=== PATIENT | male | born 1950 | race Caucasian/White ===

== ENCOUNTER → 2017-04-04 | Outpatient (CLI) | payer MEDICARE, BC ==
[2017-04-04 07:51] LABS: Blood Urea Nitrogen 21 mg/dL (9-20); Non-African American GFR(MDRD) >60 (>60 ml/min/1.73 sqM)
--- NOTE | 2017-04-04 08:51 | CT ---
EXAMINATION TYPE: CT abdomen wo/w con DATE OF EXAM: 04/04/2017 COMPARISON: NONE HISTORY: Hematuria CT DLP: 534.2 mGycm Automated exposure control for dose reduction was used. TECHNIQUE: Helical acquisition of images was performed from the lung bases through the top of iliac crest to include entire abdomen. CONTRAST: 100 cc Omnipaque 300 FINDINGS: LUNG BASES: No significant abnormality is appreciated. Mild cardiomegaly seen. LIVER/GB: No significant abnormality is appreciated. PANCREAS: No significant abnormality is seen. SPLEEN: No significant abnormality is seen. ADRENALS: No significant abnormality is seen. KIDNEYS: There is a single punctate calcification involving the lower pole left kidney measuring 2 mm. There are numerous hypodense lesions involving the kidneys bilaterally with the largest on the right measuring 5 cm with a Hounsfield unit measurement of 15 compatible with simple cyst. There is a tiny exophytic lesion extending off the upper pole the right kidney which is hyperdense on noncontrast. Measures only 6 mm. Too small to accurately characterize. May represent a small hemorr hagic cyst. Recommend short-term follow-up given the small size of the lesion. There are approximately 7 hypodense lesions on the right and 10-11 on the left. All sizable lesions m easured fluid attenuation with no significant enhancement. There are couple of additional lesions too small to characterize. BOWEL: Small hiatal hernia noted.. LYMPH NODES: No significant abnormality is seen. OSSEOUS STRUCTURES: Hypertrophic and degenerative change of the spine noted. Sternotomy wires noted. . FREE AIR: No free air is visualized. OTHER: Small diaphragmatic hernia noted on the left containing peritoneal fat. There is a 3.6 x 3.2 c m infrarenal abdominal aortic aneurysm extending to the aortic bifurcation ectasia or mild aneurysmal dilation of the left common iliac artery also noted. IMPRESSION: 1. Numerous bilateral simple appearing renal cysts. There are couple lesions which are too small to c haracterize including a 6 mm exophytic upper pole right renal lesion which is somewhat hyperdense on noncontrast imaging. Most likely related to a small hemorrhagic cyst. Other etiologies not entirely e xcluded and short-term follow-up is recommended to confirm stability. 2. Infrarenal abdominal aortic aneurysm measuring 3.6 x 3.2 cm. 3. Small diaphragmatic hernia on the left posteriorly containing peritoneal fat. #4 nonobstructing 2 mm lower pole left renal calcification.
== END ==
LOC: RADCTMAIN 07:22
PROVIDERS: ATTEND Urology
DX: N28.1 Cyst of kidney, acquired (principal); I71.4 Abdominal aortic aneurysm, without rupture; K44.9 Diaphragmatic hernia without obstruction or gangrene; N28.89 Other specified disorders of kidney and ureter
CPT/HCPCS: 82565; 84520; 74170; 36415; Q9967

== ENCOUNTER 2018-03-12 06:35 | Day surgery (SDC) | payer MEDICARE, BC ==
[2018-03-08 10:09] VITALS: BMI 22.1
[~2018-03-12 06:35] MED LIST: LACTATED RINGERS 1,000 ML IV SCH
[2018-03-12 07:09] VITALS: TEMP 98.3
[2018-03-12 07:12] LABS: Glucose,Whole Blood 96 mg/dL (75-99)
[2018-03-12] MEDS ORDERED: PROPOFOL 10 MG/ML 20 ML VIAL IV ONE (08:02)
[2018-03-12 08:30] VITALS: RESP 16
--- NOTE | 2018-03-12 08:37 | P.PCN ---
Date of Procedure: 03/12/18 Procedure(s) Performed: procedure: Esophagogastroduodenoscopy and esophageal dilation using the Microvasive mmuhvvl-qpc-kuwug balloon dilator size 15-18 mm Preoperative diagnosis: Dysphagia and history of esophageal stricture last dilated February 2017. Postoperative diagnosis: Esophageal stricture dilated up to 18 mm using the Microvasive kyuswnu-yml-lgiwj balloon dilator sizes 15-18 mm. Preparation and sedation: Was provided by anesthesia. Brief clinical history: The patient is a 67-year-old male with history of esophageal stricture last dilatedafter 18 mm in February 2017. The patient started to feel the close feeling around 2 months ago with no significant weight loss. No bleeding or other alarm symptoms. Procedure: With the patient on his left lateral decubitus position and after informed consent and adequate sedation, I passed the Olympus-GIF 160 video upper endoscope through the cricopharyngeus down the esophagus. A benign short stricture was noted at the level of the GE junction around 38 cm from the incisors and there was a moderately sized hiatal hernia. The esophagus showed low-grade esophagitis with few scattered punctated small ulcerations in the distal esophagus. No Alvares's esophagus. The endoscope was then passed into the stomach which was insufflated with air and inspected in detail including the retroflex view in the cardia. No obvious abnormalities were noted. Finally , the endoscope was passed through the pylorus into the duodenum. Pyloric channel, duodenal bulb, post bulbar area and descending duodenum appeared within normal limits. At this point I passed the Microvasive centcbe-vfk-ptypv balloon dilator through the operating channel of the endoscope centered that at the level of the stricture and inflated it and a stepwise fashion from 15-18 mm. There was satisfactory dilation and the patient tolerated the procedure well. Plan: The patient was reassured. He will be on clear liquids today and advance his diet as tolerated. Further plans based on his course. I will keep you updated on his progress.
[2018-03-12 08:41] VITALS: BP 122/88; PULSE 69
== END 2018-03-12 09:50 | disposition home or self-care (01) ==
LOC: ORWHC2ENDO 06:35
DX: K22.2 Esophageal obstruction (principal); K44.9 Diaphragmatic hernia without obstruction or gangrene; K21.0 Gastro-esophageal reflux disease with esophagitis; I25.10 Atherosclerotic heart disease of native coronary artery without angina pectoris; E11.9 Type 2 diabetes mellitus without complications; Z95.1 Presence of aortocoronary bypass graft; I10 Essential (primary) hypertension; E78.2 Mixed hyperlipidemia; Z79.84 Long term (current) use of oral hypoglycemic drugs; Z79.82 Long term (current) use of aspirin; Z79.899 Other long term (current) drug therapy
CPT/HCPCS: 43249; J2704; C1726

== ENCOUNTER → 2018-04-12 | Outpatient (CLI) | payer MEDICARE, BC ==
--- NOTE | 2018-04-12 08:37 | CT ---
EXAMINATION TYPE: CT abdomen wo/w con DATE OF EXAM: 04/12/2018 COMPARISON: 04/04/2017 HISTORY: Follow up known renal cyst CT DLP: 532.2 mGycm Automated exposure control for dose reduction was used. TECHNIQUE: Helical acquisition of images was performed from the lung bases through the top of iliac crest to include entire abdomen. CONTRAST: Performed with Oral Contrast and without and with IV Contrast, patient injected with 100 mL of Isovue 300. FINDINGS: LUNG BASES: No significant abnormality is appreciated. LIVER/GB: No significant abnormality is appreciated. No cholelithiasis on the unenhanced images. Ther e appears to be some either cystic spaces or fat surrounding the gallbladder body such as on coronal series 14 image 43 at the serosal surface of the liver in the bare area of the liver. More likely thi s could represent adjacent fat. Ultrasound could assess for adenomyomatosis if clinically indicated. PANCREAS: Solitary parenchymal calcification is present. Otherwise the pancreas enhances unremarkably . SPLEEN: No significant abnormality is seen. ADRENALS: No significant abnormality is seen. KIDNEYS: A 3 mm nonobstructing left lower pole renal calculus is redemonstrated. No other renal calcu li are seen. On the unenhanced images emanating from the right upper pole there is a 6 mm hyperdense renal lesion that is unchanged from the prior. Although this is too small to accurately characterize there does no t appear to be enhancement as this measures approximately 61 Hounsfield units on precontrast imaging in approximately 53 and postcontrast imaging. On the right there are additionally 5 cortically based cysts with the largest in the right midpole me asuring 5.5 x 5.3 cm. On the left there are 5 simple cysts measuring up to 4.1 cm, one of which dives into the renal pelvis without hydronephrosis in the inferior pole, and 2 additional hypoattenuated lesions that are too sm all to accurately characterize but are favored to represent cysts. BOWEL: There is a small hiatal hernia present. However within the left lower pole there is an 8 mm hyperdense lesion on series 6 image 32, series 7 image 32 and series 9 image 32 with a precontrast Hounsfield unit of 46 and postcontrast Hounsfield u nit of 73 demonstrating suspicious enhancement. However an 8 mm cystic lesion was seen at this locati on on the prior exam of 04/04/2017 and therefore there is a possibility that this does represent a cy st with new internal hemorrhage/proteinaceous debris and pseudoenhancement. Six-month follow-up could be performed or attempt for ultrasound-guided biopsy. LYMPH NODES: No greater than 1 cm short axis lymph node is seen within the abdomen. OSSEOUS STRUCTURES: Mild multilevel degenerative change of the spine. FREE AIR: No free air is visualized. OTHER: Again there is an infrarenal abdominal aortic aneurysm extending to the iliac bifurcation with ectasia of the left common iliac artery again noted. The aneurysm currently measures 3.7 x 3.3 cm an d previously measured 3.6 x 3.2 cm, overall similar to the prior. This is measured on series 7 image 36. IMPRESSION: 1. NEW HIGH DENSITY AND ENHANCEMENT IN A PREVIOUSLY SEEN SUBCENTIMETER LEFT LOWER POLE RENAL CYST. GI DANA ITS CYSTIC PRESENCE ON THE PRIOR OF 2016 THIS COULD REPRESENT NEW HEMORRHAGE/PROTEINACEOUS DEBRIS WITHIN A CYST AND PSEUDOENHANCEMENT OR DEVELOPMENT OF SOLID COMPONENT. CONSIDERATION COULD BE GIVEN TO SHORT-TERM FOLLOW-UP [address] OR ATTEMPT FOR PERCUTANEOUS BIOPSY. THERE DOES NOT APPEAR TO BE IN TERVAL GROWTH THIS MEASURES APPROXIMATELY 8 MM ON BOTH EXAMS. 2. SIMILAR SIZE OF INFRARENAL ABDOMINAL AORTIC ANEURYSM MEASURING UP TO 3.7 CM. 3. PROBABLE FAT GALLBLADDER BODY AND LIVER THE BARE AREA OF THE VERSUS LESS LIKELY ADENOMYOMATOSIS. U LTRASOUND COULD BE PERFORMED IF THERE IS FURTHER CONCERN.
== END | disposition home or self-care (01) ==
LOC: RADCTMAIN 06:55
PROVIDERS: ATTEND Urology
DX: N28.1 Cyst of kidney, acquired (principal); I71.4 Abdominal aortic aneurysm, without rupture
CPT/HCPCS: 82565; 84520; 74170; 36415; Q9967

== ENCOUNTER → 2018-06-28 | Outpatient (CLI) | payer MEDICARE, BC | END | disposition home or self-care (01) | LOC: LABWHC1 07:16 | PROVIDERS: ATTEND Internal Medicine Interventional Cardiology | DX: E78.2 Mixed hyperlipidemia (principal) | CPT/HCPCS: 36415; 80061; 84450; 84460 ==

== ENCOUNTER → 2018-10-08 | Outpatient (CLI) | payer MEDICARE, BC ==
--- NOTE | 2018-10-08 12:29 | CT ---
EXAMINATION TYPE: CT abdomen wo/w con DATE OF EXAM: 10/08/2018 COMPARISON: 04/12/2018 HISTORY: Follow up known renal cysts. CT DLP: 542.4 mGycm Automated exposure control for dose reduction was used. TECHNIQUE: Helical acquisition of images was performed from the lung bases through the top of iliac crest to include entire abdomen. CONTRAST: Performed with Oral Contrast and without and with IV Contrast, patient injected with 100 mL of Isovue 300. FINDINGS: LUNG BASES: No significant abnormality is appreciated. LIVER/GB: No significant abnormality is appreciated. PANCREAS: Pancreatic calcification.. SPLEEN: No significant abnormality is seen. ADRENALS: No significant abnormality is seen. KIDNEYS: There are multiple bilateral hypodense lesions with the largest seen on the right measuring 4.9 cm. All appear to be homogeneous low attenuation. All appear to measure less than 15 Hounsfield u nits. No significant enhancement is seen within the sizable lesions identified. There is a 3 mm lower pole left renal calculus with no hydronephrosis. Within the mid to lower pole region of the left kidney there is a stable 8 mm exophytic lesion which is of intermediate density does appear to demonstrate some enhancement postcontrast administration me asuring 20 Hounsfield units and precontrast and 60 Hounsfield units and postcontrast. There is a 3 mm intermediate density at the upper pole of the right kidney stable from the prior exam to small to accurately measure a Hounsfield unit. It does not meet the criteria of a simple cyst. BOWEL: No significant abnormality is seen. LYMPH NODES: No significant abnormality is seen. OSSEOUS STRUCTURES: No significant abnormality is seen. OTHER: There is a 3.1 x 3.6 cm infrarenal abdominal aortic aneurysm. IMPRESSION: 1. STABLE HIGH DENSITY AND ENHANCEMENT IN A PREVIOUSLY SEEN SUBCENTIMETER LEFT LOWER POLE RENAL CYST . GIVEN ITS CYSTIC PRESENCE ON THE PRIOR OF 2016 THIS COULD REPRESENT HEMORRHAGE/PROTEINACEOUS DEBRI S WITHIN A CYST AND PSEUDOENHANCEMENT OR DEVELOPMENT OF SOLID COMPONENT. DOES NOT APPEAR TO BE INTERV AL GROWTH THIS MEASURES APPROXIMATELY 8 MM ON BOTH EXAMS. WOULD RECOMMEND AN ADDITIONAL 3-6 MONTH FOLLOW-UP TO CONFIRM STABILITY. AN MRI WOULD BE SUGGESTED RATHER THAN CT SCAN AT TIME OF FOLLOW-UP. 2. STABLE INFRARENAL ABDOMINAL AORTIC ANEURYSM EXTENDING TO THE LEVEL THE AORTIC BIFURCATION. 3. THERE IS A NONOBSTRUCTING LEFT RENAL CALCULUS MEASURING 3 MM. 4. TINY SUB-5 MM UPPER POLE RIGHT RENAL LESION TOO SMALL TO CHARACTERIZE IS STABLE.
== END | disposition home or self-care (01) ==
LOC: RADCTMAIN 10:19
PROVIDERS: ATTEND Urology
DX: N28.1 Cyst of kidney, acquired (principal); I71.4 Abdominal aortic aneurysm, without rupture; N20.0 Calculus of kidney; N28.89 Other specified disorders of kidney and ureter
CPT/HCPCS: 37799; 82565; 84520; 74170; 36415; Q9967

== ENCOUNTER → 2018-12-09 | Outpatient (CLI) | payer MEDICARE, BC ==
[2018-12-09 17:54] LABS: African American GFR (CKD) 79.5 (60.0-200.0); Albumin 4.2 g/dL (3.80-4.90); Albumin/Globulin Ratio 2.47 (1.60-3.17); Anion Gap 7.6 mmol/L (4.00-12.00); BUN/Creat Ratio 22.73 Ratio (12.00-20.00); Calcium 9.3 mg/dL (8.7-10.3); Carbon Dioxide 28.4 mmol/L (21.6-31.8); Globulin 1.7 g/dL (1.6-3.3); Potassium 5.3 mmol/L (3.5-5.5); Total Bilirubin 0.6 mg/dL (0.2-1.2); Total Protein 5.9 g/dL (6.2-8.2)
== END | disposition home or self-care (01) ==
LOC: LABWHC1 08:03
PROVIDERS: ATTEND Nurse Practitioner Adult Health
DX: I25.10 Atherosclerotic heart disease of native coronary artery without angina pectoris (principal); I10 Essential (primary) hypertension; E78.2 Mixed hyperlipidemia
CPT/HCPCS: 36415; 80053; 80061

== ENCOUNTER → 2019-05-06 | Outpatient (CLI) | payer MEDICARE, BC ==
--- NOTE | 2019-05-06 11:24 | MR ---
MR kidneys with and without contrast HISTORY: Abnormal CT, renal cyst Multiplanar multisequence and postcontrast images obtained through the abdomen following 7.5 cc Gadav ist IV Correlation to prior CT abdomen 10/08/2018, 04/12/2018 Multiple T2 intense foci are scattered within the kidneys as noted on prior CT. At the lower pole of the left kidney there is however small focus of lobular T2 hyperintensity with possible septation antoine suring proximate 12 mm in transverse dimension but shows some associated hyperintensity on T1-weighte d sequences. No significant enhancement is evident however. In the posterior aspect of the midpole th e left kidney there is an additional focus of increased signal on T1-weighted sequences measuring 14 mm, T1 hypointense. There is an infrarenal abdominal aortic aneurysm measuring approximately 3.9 cm. There is no adrenal mass. Postop changes are noted to the sternum. Lung bases are clear. No pleural pericardial effusion. No hepatosplenomegaly. No retroperitoneal adenopathy. IMPRESSION: Multiple bilateral probable simple cysts within the kidneys. There are likely proteinaceo us cysts associated with the left kidney as described. Follow-up suggested.
== END | disposition home or self-care (01) ==
LOC: RADMRIMAIN 08:14
PROVIDERS: ATTEND Urology
DX: N28.1 Cyst of kidney, acquired (principal)
CPT/HCPCS: 74183; A9585

== ENCOUNTER → 2019-06-11 | Outpatient (CLI) | payer MEDICARE ==
[2019-06-11 16:19] LABS: Chol/HDL Ratio 3.11; LDL Cholesterol,Calculated 76.4 mg/dL (0.0-131.0); VLDL Calculation 16.6 mg/dL (5.00-40.00)
== END | disposition home or self-care (01) ==
LOC: LABWHC1 09:58
PROVIDERS: ATTEND Nurse Practitioner Adult Health
DX: E78.2 Mixed hyperlipidemia (principal)
CPT/HCPCS: 36415; 80061; 84450; 84460

== ENCOUNTER → 2019-12-22 | Outpatient (CLI) | payer MEDICARE ==
[2019-12-22 17:17] LABS: African American GFR (CKD) 71.1 (60.0-200.0); Albumin 4.3 g/dL (3.80-4.90); Albumin/Globulin Ratio 2.26 (1.60-3.17); BUN/Creat Ratio 18.33 Ratio (12.00-20.00); Calcium 9.5 mg/dL (8.7-10.3); Chol/HDL Ratio 3.31; Globulin 1.9 g/dL (1.6-3.3); LDL Cholesterol,Calculated 82.6 mg/dL (0.0-131.0); Non-African American GFR(CKD) 61.3 (60.0-200.0); Potassium 4.8 mmol/L (3.5-5.5); Total Bilirubin 0.6 mg/dL (0.2-1.2); Total Protein 6.2 g/dL (6.2-8.2); VLDL Calculation 21.4 mg/dL (5.00-40.00)
== END | disposition home or self-care (01) ==
LOC: LABWHC1 07:22
PROVIDERS: ATTEND Internal Medicine Interventional Cardiology
DX: E78.2 Mixed hyperlipidemia (principal)
CPT/HCPCS: 36415; 80053; 80061

== ENCOUNTER 2020-06-04 06:56 | Day surgery (SDC) | payer MEDICARE ==
[2020-06-01 12:12] VITALS: BMI 22.2
[2020-06-04 08:05] VITALS: TEMP 97.7
[2020-06-04] MEDS: LACTATED RINGERS 1,000 ML IV SCH ×2 (08:14→08:16)
[2020-06-04 08:15] LABS: Glucose,Whole Blood 125 mg/dL (75-99)
[2020-06-04] MEDS ORDERED: PROPOFOL 10 MG/ML 20 ML VIAL IV ONE (08:17)
[2020-06-04] MEDS ORDERED: MIDAZOLAM 2 MG/2 ML VIAL ONE (08:17)
--- NOTE | 2020-06-04 08:32 | P.PCN ---
Date of Procedure: 06/04/20 Procedure(s) Performed: BRIEF HISTORY: Patient is a 69-year-old, pleasant, scheduled for an upper endoscopy as part of evaluation of intermittent dysphagia to solids for the last 2 months duration. He has prior history of esophageal stricture requiring dilation in the last one was in June of 2019.. PROCEDURE PERFORMED: Esophagogastroduodenoscopy with biopsy and dilation. PREOPERATIVE DIAGNOSIS: Intermittent dysphagia to solids. IV sedation per anesthesia. PROCEDURE: After informed consent was obtained, the patient was brought into the endoscopy unit. IV sedation was administered by Anesthesia under continuous monitoring. Initially the Olympus GIF-140 video endoscope was inserted into the mouth. Esophagus intubated without any difficulty. It was gradually advanced into the stomach and duodenum and carefully examined. The bulb and the second part of the duodenum appeared normal. The scope at this time was withdrawn to the stomach, adequately insufflated with air, and upon careful examination, mucosa of the antrum, body, cardia and the fundus appeared normal. The scope was then withdrawn into the esophagus. Small hiatal hernia noted. There was a distal esophageal stricture identified at this time I proceeded with a balloon dilation using 15-18 mm TTS balloon. He was dilated to 15 mm balloon for 30 seconds and further dilation was not performed because he was mucosal tear with oozing identified. The mucosa of the distal esophagus and midesophagus appeared slightly thickened with erosions and thickened esophageal folds with mucosal rings suspicious for years of age esophagitis and hence multiple biopsies were done from this area. The rest of esophagus appeared normal and the patient tolerated the procedure well. IMPRESSION: 1. Distal esophagus which are status post balloon dilation using 15 mm TTS balloon. 2. Linear erosions with erythema and thickened folds at the mid and distal esophagus consistent with reflux esophagitis, status post multiple biopsies to rule out eosinophilic esophagitis. RECOMMENDATIONS: The findings of this examination were discussed with the patient well as his family. He will remain on a clear liquid diet for lunch today. Continue with Protonix 40 mg twice daily and follow antireflux measures and he'll be seen in office in 3 months..
[2020-06-04 08:35] VITALS: RESP 16
[2020-06-04 09:03] VITALS: BP 140/81; PULSE 70
== END 2020-06-04 09:24 | disposition home or self-care (01) ==
LOC: ORWHC2ENDO 06:56
PROVIDERS: ATTEND Internal Medicine Gastroenterology
DX: K22.2 Esophageal obstruction (principal); K44.9 Diaphragmatic hernia without obstruction or gangrene; K20.0 Eosinophilic esophagitis; K21.9 Gastro-esophageal reflux disease without esophagitis; E78.5 Hyperlipidemia, unspecified; E11.9 Type 2 diabetes mellitus without complications; Z79.84 Long term (current) use of oral hypoglycemic drugs; Z79.82 Long term (current) use of aspirin; Z79.899 Other long term (current) drug therapy
CPT/HCPCS: 88305; 43239; 43249; J2250; J2704; C1726

== ENCOUNTER → 2020-08-05 | Outpatient (CLI) | payer MEDICARE ==
[2020-08-05 12:07] LABS: Chol/HDL Ratio 3.39
== END | disposition home or self-care (01) ==
LOC: LABWHC1 07:05
PROVIDERS: ATTEND Nurse Practitioner Adult Health
DX: E78.2 Mixed hyperlipidemia (principal)
CPT/HCPCS: 36415; 80061; 84450; 84460

== ENCOUNTER → 2020-12-08 | Outpatient (CLI) | payer MEDICARE ==
[2020-12-08 13:16] LABS: Basophils # (A) 0.04 X 10*3/uL (0.00-0.10); Basophils % (A) 0.7 %; Eosinophils # (A) 0.14 X 10*3/uL (0.04-0.35); Eosinophils % (A) 2.3 %; HCT 41.2 % (39.6-50.0); HGB 13.4 g/dL (13.0-17.0); Lymphocytes # (A) 2.55 X 10*3/uL (0.90-5.00); Lymphocytes % (A) 42.4 %; MCH 31.2 pg (27.0-32.0); MCHC 32.5 g/dL (32.0-37.0); Mean Platelet Volume 10.7 fL (9.5-12.2); Monocytes # (A) 0.43 X 10*3/uL (0.20-1.00); Monocytes % (A) 7.1 %; Neutrophils # (A) 2.84 X 10*3/uL (1.80-7.70); Neutrophils % (A) 47.2 %; Platelet Count 206 X 10*3/uL (140-440); RBC 4.29 X 10*6/uL (4.40-5.60); RDW 12.9 % (11.5-14.5); WBC 6.02 X 10*3/uL (4.50-10.00)
[2020-12-08 16:31] LABS: Hemoglobin A1C 7.5 % (4.0-6.0)
[2020-12-08 18:29] LABS: Urine Creatinine 110.7 mg/dL
[2020-12-08 21:02] LABS: African American GFR (CKD) 64.1 (60.0-200.0); Albumin 4.5 g/dL (3.80-4.90); Albumin/Globulin Ratio 1.96 (1.60-3.17); Anion Gap 9.8 mmol/L (4.00-12.00); BUN/Creat Ratio 19.23 Ratio (12.00-20.00); Calcium 9.5 mg/dL (8.7-10.3); Carbon Dioxide 25.2 mmol/L (21.6-31.8); Chol/HDL Ratio 3.9; Globulin 2.3 g/dL (1.6-3.3); LDL Cholesterol,Calculated 90.8 mg/dL (0.0-131.0); Non-African American GFR(CKD) 55.3 (60.0-200.0); Potassium 4.9 mmol/L (3.5-5.5); Total Bilirubin 0.9 mg/dL (0.3-1.2); Total Protein 6.8 g/dL (6.2-8.2); VLDL Calculation 25.2 mg/dL (5.00-40.00)
== END | disposition home or self-care (01) ==
LOC: LABWHC1 06:55
PROVIDERS: ATTEND Family Medicine
DX: E11.9 Type 2 diabetes mellitus without complications (principal); E78.5 Hyperlipidemia, unspecified; I10 Essential (primary) hypertension; D50.9 Iron deficiency anemia, unspecified
CPT/HCPCS: 36415; 80053; 80061; 82043; 82570; 83036; 85025

== ENCOUNTER → 2021-02-07 | Outpatient (CLI) | payer MEDICARE ==
[2021-02-07 07:58] LABS: Albumin 3.7 g/dL (3.5-5.0); Calcium 9.1 mg/dL (8.4-10.2); Potassium 4.5 mmol/L (3.5-5.1); Total Bilirubin 0.4 mg/dL (0.2-1.3); Total Protein 6.3 g/dL (6.3-8.2)
--- NOTE | 2021-02-07 11:28 | CT ---
EXAMINATION TYPE: CT abdomen wo/w con DATE OF EXAM: 02/07/2021 COMPARISON: 10/08/2018 and 05/06/2019 HISTORY: 70-year-old male N28.1, Follow up to renal cysts, hematuria TECHNIQUE: Contiguous axial scanning of the abdomen before and after administration of 100 ml Isovue 300 IV contrast. Delayed images through the kidneys and coronal/sagittal reconstructions performed. CT DLP: 626.5 mGycm Automated exposure control for dose reduction was used. FINDINGS: Median sternotomy wires are present. Heart normal size without pericardial effusion. Small fat-contai carli left Bochdalek hernia. No pleural effusion. Small to moderate-sized hiatal hernia. No focal liver lesion or biliary ductal dilatation. Portal venous system is patent. Gallbladder, adrenal glands, spleen, and pancreas within normal limits. No dilated small bowel, free fluid, or free air. Moderate stool within the right side of the colon. D iverticular change at the splenic flexure of the colon with mild circumferential wall thickening and either some mild pericolonic fat stranding or prominent pericolonic vessels, axial image 19. Fusiform infrarenal AAA measures 4.0 cm wide versus 3.9 cm, previously. The left common iliac artery remains ectatic at 1.8 cm. Scattered mild atherosclerotic calcifications throughout. Numerous right renal cysts measuring up to 6.2 cm versus 5.9 cm, previously. No definite enhancing le juan is identified. Tiny 5 mm cortical nodularity medial upper pole right kidney remains unchanged. Numerous left renal cysts redemonstrated measuring up to 4.1 cm. There is a nonobstructive 5 mm left lower pole renal calculus. Indeterminate hypodense cortical lesion medial lower pole left kidney measures 1.7 x 1.2 cm versus 1. 8 x 1.5 cm on 10/08/2018. Some internal heterogeneous density is present. Bones: Degenerative change bilateral SI joints. Facet arthropathy mid to lower lumbar spine. IMPRESSION: 1. REDEMONSTRATED NUMEROUS BILATERAL RENAL CYSTS MEASURING UP TO 6.2 CM. 2. MILDLY COMPLEX HYPODENSE LESION MEDIAL LOWER POLE LEFT KIDNEY IS STABLE TO SLIGHTLY SMALLER AT 1.7 X 1.2 CM (VERSUS 1.8 X 1.5 CM ON 10/08/2018). THIS SUGGESTS A BENIGN ETIOLOGY. CONSIDER CONTINUED KATHERINE VEILLANCE EVERY 1 - 2 YEARS. 3. FUSIFORM INFRARENAL AAA AT 4.0 CM VERSUS 3.9 CM, PREVIOUSLY. CONTINUED APPROPRIATE FOLLOW-UP AND M ANAGEMENT RECOMMENDED. 4. LEFT-SIDED COLONIC DIVERTICULOSIS. THERE IS MILD WALL THICKENING AT THE SPLENIC FLEXURE OF THE COL ON THAT COULD RELATE TO NONDISTENTION. CORRELATE FOR ANY LEFT UPPER QUADRANT PAIN TO EXCLUDE MILD ACU TE DIVERTICULITIS. DIRECT VISUALIZATION RECOMMENDED IF ROUTINE SCREENING COLONOSCOPY IS NOT BEING PER FORMED. 5. SMALL TO MODERATE-SIZED HIATAL HERNIA.
[2021-02-07 15:43] LABS: Chol/HDL Ratio 3.23
== END | disposition home or self-care (01) ==
LOC: RADCTMAIN 06:55
PROVIDERS: ATTEND Urology
DX: N28.1 Cyst of kidney, acquired (principal); N28.9 Disorder of kidney and ureter, unspecified; I71.4 Abdominal aortic aneurysm, without rupture; K57.30 Diverticulosis of large intestine without perforation or abscess without bleeding; K44.9 Diaphragmatic hernia without obstruction or gangrene
CPT/HCPCS: 80061; 80053; 74170; Q9967

== ENCOUNTER 2021-10-07 13:14 | Inpatient (IN) | payer MEDICARE ==
[2021-10-07] MEDS ORDERED: HEPARIN SODIUM 1,000 UN/ML (10ML VL) IV ONE (13:42)
[2021-10-07] MEDS: ASPIRIN 81 MG PO STA ×2 (13:45→14:19)
[2021-10-07 13:56] LABS: Basophils % (A) 0 %; Eosinophils # (A) 0.2 k/uL (0-0.7); Eosinophils % (A) 1 %; HCT 40.3 % (39.0-53.0); HGB 12.7 gm/dL (13.0-17.5); Lymphocytes # (A) 1.6 k/uL (1.0-4.8); Lymphocytes % (A) 14 %; MCH 30.2 pg (25.0-35.0); MCHC 31.6 g/dL (31.0-37.0); MCV 95.8 fL (80.0-100.0); Mean Platelet Volume 7.7; Monocytes # (A) 0.5 k/uL (0-1.0); Monocytes % (A) 5 %; Neutrophils # (A) 9.4 k/uL (1.3-7.7); Neutrophils % (A) 80 %; Platelet Count 238 k/uL (150-450); RDW 13.3 % (11.5-15.5); WBC 11.7 k/uL (3.8-10.6)
--- NOTE | 2021-10-07 13:56 | XR ---
EXAMINATION TYPE: XR chest 1V portable DATE OF EXAM: 10/07/2021 COMPARISON: Chest x-ray November 08, 2012 HISTORY: Chest pain. TECHNIQUE: Single frontal view of the chest is obtained. FINDINGS: There is mild chronic parenchymal change without suspicious focal air space opacity, pleur al effusion, or pneumothorax seen. The cardiac silhouette size is stable and within normal limits. Overlying sternal wires and mediastinal clips redemonstrated. The osseous structures are intact. IMPRESSION: Chronic changes without acute pulmonary process.
[2021-10-07] MEDS ORDERED: fentaNYL (PF) 50 MCG/ML 2 ML AMP ONE (14:02)
[2021-10-07] MEDS ORDERED: IV FLUID CONTINUATION 900 ML IV ONE (14:03)
[2021-10-07] MEDS ORDERED: SODIUM CHLORIDE 0.9% 1,000 ML IV ONE (14:03)
[2021-10-07 14:05] LABS: Partial Thromboplastin Time 22.1 sec (22.0-30.0); Prothrombin Time 11.3 sec (9.0-12.0)
[2021-10-07] MEDS ORDERED: fentaNYL (PF) 50 MCG/ML 2 ML AMP IV ONE (14:05)
[2021-10-07] MEDS ORDERED: MIDAZOLAM 2 MG/2 ML VIAL IV ONE (14:05)
--- NOTE | 2021-10-07 14:05 | ED ---
Chest Pain HPI - General Chief Complaint: Chest Pain Stated Complaint: Chest Pain Time Seen by Provider: 10/07/21 13:35 Source: patient Mode of arrival: ambulatory Limitations: no limitations - History of Present Illness Initial Comments: 71-year-old male with past medical history of coronary artery disease status post CABG in 2013, abdominal wall aneurysm who presents emergency Department with chest pain. States it's been present for the past 4 days. Described as a pressure sensation. He thought it may have been reflux and so he was taking cswv-ups-solhckq reflux medication. He describes the pain as a 4 out of 10. Does not have nitro available for chest pain. Follows with Dr. Grant from cardiology. Denies fevers, chills or cough. Does have some mild shortness of breath. Continuing weakness in his extremities. No other alleviating, precipitating modifying factors - Related Data Home Medications Medication Instructions Recorded Confirmed Atorvastatin [Lipitor] 80 mg PO HS 03/08/18 10/07/21 Ezetimibe [Zetia] 10 mg PO DAILY 03/08/18 10/07/21 metFORMIN HCL [Glucophage] 500 mg PO TID 03/08/18 10/07/21 Omeprazole 20 mg PO BID 10/07/21 10/07/21 Sildenafil Citrate 50 mg PO DAILY PRN 10/07/21 10/07/21 Tamsulosin [Flomax] 0.4 mg PO DAILY 10/07/21 10/07/21 Previous Rx's Medication Instructions Recorded Acetaminophen Tab [Tylenol] 650 mg PO Q6HR PRN tab 10/10/21 Aspirin 81 mg PO DAILY #30 tab 10/10/21 Furosemide [Lasix] 20 mg PO DAILY 30 Days #30 tab 10/10/21 Losartan [Cozaar] 25 mg PO HS #30 tab 10/10/21 Metoprolol Tartrate [Lopressor] 25 mg PO TID #60 tab 10/10/21 Ticagrelor [Brilinta] 90 mg PO BID 30 Days #60 tab 10/10/21 Allergies Allergy/AdvReac Type Severity Reaction Status Date / Time No Known Allergies Allergy Verified 10/07/21 13:53 Review of Systems ROS Statement: Those systems with pertinent positive or pertinent negative responses have been documented in the HPI. ROS Other: All systems not noted in ROS Statement are negative. EKG Findings - EKG Comments: EKG Findings:: EKG demonstrates ST elevation inferior leads with q wave. Reciprocal changes 1 and AVL Past Medical History Past Medical History: Coronary Artery Disease (CAD), Diabetes Mellitus, GERD/Reflux, Hyperlipidemia Additional Past Medical History / Comment(s): varicose veins, "small abdominal aneurysm" Dr Milka grayson, dysphagia-hx of egd with dilation., small amt of blood in urine (follows with Dr. Dickey). History of Any Multi-Drug Resistant Organisms: None Reported Past Surgical History: Coronary Bypass/CABG, Heart Catheterization Additional Past Surgical History / Comment(s): triple CABG 2012, RK surgery luz eyes, luz knee arthroscopy (x 2 each knee), EGD's with Dilation. Past Anesthesia/Blood Transfusion Reactions: No Reported Reaction Past Psychological History: No Psychological Hx Reported Smoking Status: Never smoker Past Alcohol Use History: Rare Past Drug Use History: None Reported - Past Family History Mother Family Medical History: No Reported History General Exam Limitations: no limitations General appearance: alert, in no apparent distress Head exam: Present: atraumatic, normocephalic, normal inspection Eye exam: Present: normal appearance, PERRL, EOMI. Absent: scleral icterus, conjunctival injection, periorbital swelling ENT exam: Present: normal exam, mucous membranes moist Neck exam: Present: normal inspection. Absent: tenderness, meningismus, lympha denopathy Respiratory exam: Present: normal lung sounds bilaterally. Absent: respiratory distress, wheezes, rales, rhonchi, stridor Cardiovascular Exam: Present: regular rate, normal rhythm, normal heart sounds. Absent: systolic murmur, diastolic murmur, rubs, gallop, clicks GI/Abdominal exam: Present: soft, normal bowel sounds. Absent: distended, tenderness, guarding, rebound, rigid Extremities exam: Present: normal inspection, full ROM, normal capillary refill. Absent: tenderness, pedal edema, joint swelling, calf tenderness Back exam: Present: normal inspection Neurological exam: Present: alert, oriented X3, CN II-XII intact Psychiatric exam: Present: normal affect, normal mood Skin exam: Present: warm, dry, intact, normal color. Absent: rash Course Vital Signs 10/07/21 10/07/21 13:22 13:40 Temperature 97.9 F Pulse Rate 95 Pulse Rate [ 92 Sitting Religious Education Director] Respiratory 22 Rate Blood Pressure 109/69 O2 Sat by Pulse 90 L Oximetry Procedures - [facility] Protocol (Time Out) Patient Identification (2 identifiers required): Chart, Verbal, Name, Birthdate Patient/Legal Gunite Mixer has Confirmed: Site, Procedure, Consent Site Marked: Not Applicable Chest Pain MDM - MDM Upon arrival patient was placed into trauma 1. EKG is performed which demonstrates ST segment elevation in the inferior leads. Code STEMI is activate d. Spoke with Dr. Cavazos. Patient has taken 2 baby aspirins this morning. He is additionally given 2 more. 4000 units of heparin and initiated. Chest x- rays performed a laboratory studies obtained. Patient is taken to [facility] in stable condition. Spoke with Dr. arevalo in regards to admission Disposition Clinical Impression: Chest pain, ST elevation myocardial infarction (STEMI) Disposition: ADMITTED IP TO THIS HOSP Condition: Stable Is patient prescribed a controlled substance at d/c from ED?: No Decision to Admit Reason: Admit from EC Decision Date: 10/07/21 Decision Time: 13:55
[2021-10-07 14:06] LABS: Albumin 4.3 g/dL (3.5-5.0); Potassium 4.9 mmol/L (3.5-5.1); Total Bilirubin 0.7 mg/dL (0.2-1.3); Total Protein 6.9 g/dL (6.3-8.2)
[2021-10-07] MEDS ORDERED: NALOXONE 0.4 MG/ML 1 ML VIAL IV PRN (14:06)
[2021-10-07] MEDS ORDERED: LIDOCAINE 1% INJ 10MG/ML (5 ML VIAL-PF) SQ ONE (14:07)
[2021-10-07] MEDS ORDERED: TICAGRELOR 90 MG TAB ONE (14:07)
[2021-10-07] MEDS ORDERED: TICAGRELOR 90 MG TAB PO ONE (14:10)
--- NOTE | 2021-10-07 14:15 | P.CRDCN ---
History of Present Illness Consult date: 10/07/21 History of present illness: HISTORY OF PRESENT ILLNESS: This is a 71-year-old male with a past medical history significant for coronary artery disease with previous CABG, hyperlipidemia, diabetes, and AAA (follows with Dr. Jarquin). Patient follows in the office with Dr. Grant. We have been asked to see the patient in consultation for STEMI. The patient presented to the emergency room with a chief complaint of chest pain. An EKG was obtained revealing ST elevation in inferior leads and a STEMI was called. Patient was examined in the emergency room. He states he has been having chest pain intermittently for the past 2-3 days. He states the pain felt sort of like indigestion. He denied any radiation of the pain. He reports minimal shortness of breath. He currently states the pain is about a 2/10. He has received aspirin at the time of my examination. * EKG reveals ST elevation in inferior leads * Chest xray chronic changes without acute pulmonary process * Laboratory data: WBC 11.7. Hemoglobin 12.7. Platelet count 238. Sodium 139. Potassium 4.9. BUN 31. Creatinine 1.30. * Current home cardiac medications include Lipitor 80 mg at night and Zetia 10 mg daily * Most recent echocardiogram obtained in July 2020 revealed normal EF, mild MR, mild TR * Patient underwent Lexiscan stress test in July 2020 revealing normal ejection fraction and no evidence for ischemia * Patient underwent CABG in October 2012 with HERIBERTO, radialOM1, VGD1 REVIEW OF SYSTEMS: At the time of my exam: CONSTITUTIONAL: Denies fever or chills. HEENT: Denies blurred vision, vision changes, or eye pain. Denies hemoptysis CARDIOVASCULAR: Denies chest pain. Denies orthopnea. Denies PND. Denies palpitations RESPIRATORY: Denies shortness of breath. GASTROINTESTINAL: Denies abdominal pain. Denies nausea or vomiting. HEMATOLOGIC: Denies bleeding disorders. GENITOURINARY: Denies any blood in urine. SKIN: Denies pruitis. Denies rash. PHYSICAL EXAM: VITAL SIGNS: Reviewed. GENERAL: Well-developed in no acute distress. HEENT: Head is normocephalic. Pupils are equal, round. Sclerae anicteric. Mucous membranes of the mouth are moist. Neck supple. No JVD or thyromegaly LUNGS: Respirations even and unlabored. Lungs essentially clear to auscultation bilaterally. HEART: Regular rate and rhythm. S1 and S2 heard. ABDOMEN: Soft. Nondistended. Nontender. EXTREMITIES: Normal range of motion. No clubbing or cyanosis. Peripheral pulses intact. No lower extremity edema NEUROLOGIC: Awake and alert. Oriented x 3. ASSESSMENT: Inferior STEMI Coronary artery disease with previous three-vessel CABG in 2013 Hyperlipidemia Diabetes History of AAA PLAN: Patient was given aspirin and IV heparin bolus in the ER. Emergent cardiac cath advised. Patient agreeable. 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 Cavazos Further recommendations pending patient course Nurse practitioner note has been reviewed by physician. Signing provider agrees with the documented findings, assessment, and plan of care. Past Medical History Past Medical History: Coronary Artery Disease (CAD), Diabetes Mellitus, GERD/Reflux, Hyperlipidemia Additional Past Medical History / Comment(s): varicose veins, "small abdominal aneurysm" Dr Milka grayson, dysphagia-hx of egd with dilation., small amt of blood in urine (follows with Dr. Dickey). History of Any Multi-Drug Resistant Organisms: None Reported Past Surgical History: Coronary Bypass/CABG, Heart Catheterization Additional Past Surgical History / Comment(s): triple CABG 2013, RK surgery luz eyes, luz knee arthroscopy (x 2 each knee), EGD's with Dilation. Past Anesthesia/Blood Transfusion Reactions: No Reported Reaction Past Psychological History: No Psychological Hx Reported Smoking Status: Never smoker Past Alcohol Use History: Rare Past Drug Use History: None Reported - Past Family History Mother Family Medical History: No Reported History Medications and Allergies Home Medications Medication Instructions Recorded Confirmed Type Atorvastatin [Lipitor] 80 mg PO HS 03/08/18 10/07/21 History Ezetimibe [Zetia] 10 mg PO DAILY 03/08/18 10/07/21 History metFORMIN HCL [Glucophage] 500 mg PO TID 03/08/18 10/07/21 History Omeprazole 20 mg PO BID 10/07/21 10/07/21 History Sildenafil Citrate 50 mg PO DAILY PRN 10/07/21 10/07/21 History Tamsulosin [Flomax] 0.4 mg PO DAILY 10/07/21 10/07/21 History Allergies Allergy/AdvReac Type Severity Reaction Status Date / Time No Known Allergies Allergy Verified 10/07/21 13:53 Physical Exam Vitals: Vital Signs Temp Pulse Pulse Resp BP Pulse Ox 10/07/21 13:40 92 10/07/21 13:22 97.9 F 95 22 109/69 90 L Intake and Output 10/06/21 10/07/21 10/07/21 22:59 06:59 14:59 Other: Weight 71.668 kg Results 10/07/21 13:45 10/07/21 13:45 Cardiac Enzymes 10/07/21 Range/Units 13:45 AST 411 H (17-59) U/L Coagulation 10/07/21 Range/Units 13:45 PT 11.3 (9.0-12.0) sec APTT 22.1 (22.0-30.0) sec CBC 10/07/21 Range/Units 13:45 WBC 11.7 H (3.8-10.6) k/uL RBC 4.20 L (4.30-5.90) m/uL Hgb 12.7 L (13.0-17.5) gm/dL Hct 40.3 (39.0-53.0) % Plt Count 238 (150-450) k/uL Comprehensive Metabolic Panel 10/07/21 Range/Units 13:45 Sodium 139 (137-145) mmol/L Potassium 4.9 (3.5-5.1) mmol/L Chloride 103 (98-107) mmol/L Carbon Dioxide 24 (22-30) mmol/L BUN 31 H (9-20) mg/dL Creatinine 1.30 H (0.66-1.25) mg/dL Glucose 214 H (74-99) mg/dL Calcium 9.0 (8.4-10.2) mg/dL AST 411 H (17-59) U/L ALT 46 (4-49) U/L Alkaline Phosphatase 68 (38-126) U/L Total Protein 6.9 (6.3-8.2) g/dL Albumin 4.3 (3.5-5.0) g/dL Intake and Output 10/06/21 10/07/21 10/07/21 22:59 06:59 14:59 Other: Weight 71.668 kg Patient Weight 10/08/21 06:59 Weight 71.668 kg 10/07/21 13:45 10/07/21 13:45
[2021-10-07] MEDS ORDERED: ASPIRIN 81 MG PO STA (14:18)
[2021-10-07] MEDS ORDERED: HEPARIN SODIUM 1,000 UN/ML (10ML VL) ONE (14:18)
[2021-10-07] MEDS ORDERED: NITROGLYCERIN 1000MCG/10ML SYRINGE INTRACORON ONE (14:26)
[2021-10-07] MEDS ORDERED: niCARdipine 25 MG/10 ML VIAL ONE (14:29)
[2021-10-07] MEDS ORDERED: NITROGLYCERIN 1000MCG/10ML SYRINGE IV ONE (14:41)
[2021-10-07] MEDS ORDERED: IOPAMIDOL-370 125ML BTL INJ ONE (14:55)
[2021-10-07 15:24] LABS: Glucose,Whole Blood 150 mg/dL (75-99)
[2021-10-07] MEDS ORDERED: CALCIUM CARBONATE 500 MG CHEWABLE PO PRN (16:46)
[2021-10-07] MEDS ORDERED: ONDANSETRON 4 MG/2 ML VIAL IVP PRN (16:46)
[2021-10-07] MEDS ORDERED: LACTULOSE 20 GM/30 ML CUP PO PRN (16:46)
[2021-10-07] MEDS ORDERED: ACETAMINOPHEN TAB 325 MG TAB PO PRN (16:46)
[2021-10-07] MEDS ORDERED: ALPRAZolam 0.25 MG TAB PO PRN (16:46)
--- NOTE | 2021-10-07 16:48 | P.HPIM ---
History of Present Illness H&P Date: 10/07/21 Chief Complaint: Indigestion This is a very pleasant 71-year-old patient who follows with Dr. Huizar. Chronic stable medical conditions include diabetes, GERD, hyperlipidemia, osteoarthritis, a single stricture with dilatation last one being in February [address] Sonu Sharma. Also has a AAA being followed by Dr. lowry. She has not a coronary bypass in 2012. For loss to 3 days patient been having more described as upper chest indigestion piece. And had been passing enough. He had been getting some symptoms with yardwork even laying at night. Finding it difficult to sleep at times. Symptoms progressed today. No radiation. Dizzy lightheaded some shortness of breath. 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 Patient had inferior ST elevation GA. Successful stent of the RCA was done. Postprocedure in the ICU. at the bedside. Review of systems: GEN.: Tired EYES: None HEENT: None NECK: None RESPIRATORY: As above CARDIOVASCULAR: As above GASTROINTESTINAL: None GENITOURINARY: None MUSCULOSKELETAL: Some joint pains LYMPHATICS: None HEMATOLOGICAL: None PSYCHIATRY: None NEUROLOGICAL: None Past medical history to include: CAD with a bypass in 2012, diabetes, GERD, hyperlipidemia,'s medical's veins, small abdominal aneurysm being followed by Dr. lowry, esophageal stricture with dilatation, history of hematuria follows with Dr. dickey Social history: . Nonsmoker. Alcohol rarely. 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 Family history: Reviewed, noncontributory to presentation Physical examination: VITAL SIGNS: 97.9, 71, 30, 05/27/1992, 98% room air GENERAL: BMI 22.7, laying in bed awake. EYES: Pupils equal. Conjunctiva normal. HEENT: External appearance of nose and ears normal, oral cavity grossly normal. NECK: JVD not raised; masses not palpable. HEART: First and second heart sounds are normal; no edema. LUNGS: Respiratory rate normal; clear to auscultation. ABDOMEN: Soft, nontender, liver spleen not palpable, no masses palpable. PSYCH: Alert and oriented x3; mood and affect normal. MUSCULOSKELETAL:No Clubbing/cyanosis;muscles-grossly intact. Some evidence of OA NEUROLOGICAL: Cranial nerves grossly intact; no facial asymmetry, power and sensation grossly intact. LYMPHATICS: No lymph nodes palpable in the axilla and neck INVESTIGATIONS, reviewed in the clinical context: White count 11.7 hemoglobin 12.7 platelets 238 potassium 4.9. 31 and creatinine 1.30 Troponin I 49.5 Blood glucose 214 EKG tracing personally reviewed by me-ST elevation inferior leads. Chest x-ray film personally reviewed by me: Unremarkable Assessment and plan: -Acute ST elevation inferior wall GA. Emergent cardiac catheterization with stent of the RCA by Dr. Cavazos. 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 For Accu-Cheks. -GERD Omeprazole 20 mg twice a day -Hyperlipidemia Zetia 10 a day, Lipitor 80 mg daily at bedtime Patient received a stent of the RCA. IV fluids. Renal ultrasound. UA. Hold metformin. Accu-Cheks and sliding scale insulin. Follow with cardiology. Aspirin beta sydni. Lipitor Zetia. Care was discussed the patient and the the bedside. Questions answered. -Possibly chronic kidney disease stage III from diabetic nephrosclerosis Check renal ultrasound. Gentle hydration. Repeat labs in the morning. Check UA Past Medical History Past Medical History: Coronary Artery Disease (CAD), Diabetes Mellitus, GERD/Reflux, Hyperlipidemia Additional Past Medical History / Comment(s): varicose veins, "small abdominal aneurysm" Dr Jarquin watchsrinath, dysphagia-hx of egd with dilation., small amt of blood in urine (follows with Dr. Dickey). History of Any Multi-Drug Resistant Organisms: None Reported Past Surgical History: Coronary Bypass/CABG, Heart Catheterization Additional Past Surgical History / Comment(s): triple CABG 2013, RK surgery luz eyes, luz knee arthroscopy (x 2 each knee), EGD's with Dilation. Past Anesthesia/Blood Transfusion Reactions: No Reported Reaction Date of Last Stent Placement:: 10/07/21 Past Psychological History: No Psychological Hx Reported Smoking Status: Never smoker Past Alcohol Use History: Rare Past Drug Use History: None Reported - Past Family History Mother Family Medical History: No Reported History Medications and Allergies Home Medications Medication Instructions Recorded Confirmed Type Atorvastatin [Lipitor] 80 mg PO HS 03/08/18 10/07/21 History Ezetimibe [Zetia] 10 mg PO DAILY 03/08/18 10/07/21 History metFORMIN HCL [Glucophage] 500 mg PO TID 03/08/18 10/07/21 History Omeprazole 20 mg PO BID 10/07/21 10/07/21 History Sildenafil Citrate 50 mg PO DAILY PRN 10/07/21 10/07/21 History Tamsulosin [Flomax] 0.4 mg PO DAILY 10/07/21 10/07/21 History Allergies Allergy/AdvReac Type Severity Reaction Status Date / Time No Known Allergies Allergy Verified 10/07/21 13:53 Physical Exam Vitals: Vital Signs Temp Pulse Pulse Resp BP Pulse Ox 10/07/21 16:00 97.9 F 71 31 H 107/83 98 10/07/21 15:30 75 10 L 100/65 94 L 10/07/21 15:20 82 11 L 98 10/07/21 14:30 97.9 F 10/07/21 13:40 92 10/07/21 13:22 97.9 F 95 22 109/69 90 L Intake and Output 10/07/21 10/07/21 10/07/21 06:59 14:59 22:59 Intake Total 700 150 Balance 700 150 Intake: IV 700 150 Sodium Chloride 0.9% 1, 150 000 ml @ 0 mls/hr IV .[facility] Rx#:[id number] Other: Weight 71.668 kg Results CBC & Chem 7: 10/07/21 13:45 10/07/21 13:45 Labs: Abnormal Lab Results - Last 24 Hours (Table) 10/07/21 10/07/21 10/07/21 Range/Units 13:45 13:45 13:45 WBC 11.7 H (3.8-10.6) k/uL RBC 4.20 L (4.30-5.90) m/uL Hgb 12.7 L (13.0-17.5) gm/dL Neutrophils # 9.4 H (1.3-7.7) k/uL BUN 31 H (9-20) mg/dL Creatinine 1.30 H (0.66-1.25) mg/dL Glucose 214 H (74-99) mg/dL POC Glucose (mg/dL) (75-99) mg/dL AST 411 H (17-59) U/L Troponin I 49.500 H* (0.000-0.034) ng/mL 10/07/21 Range/Units 15:21 WBC (3.8-10.6) k/uL RBC (4.30-5.90) m/uL Hgb (13.0-17.5) gm/dL Neutrophils # (1.3-7.7) k/uL BUN (9-20) mg/dL Creatinine (0.66-1.25) mg/dL Glucose (74-99) mg/dL POC Glucose (mg/dL) 150 H (75-99) mg/dL AST (17-59) U/L Troponin I (0.000-0.034) ng/mL Thrombosis Risk Factor Assmnt - Choose All That Apply Any of the Below Risk Factors Present?: Yes Each Factor Represents 1 point: Acute GA, Varicose veins Other Risk Factors: Yes Each Risk Factor Represents 2 Points: Age 61-74 years Other congenital or acquired thrombophilia - If yes, enter type in comment: No Thrombosis Risk Factor Assessment Total Risk Factor Score: 4 Thrombosis Risk Factor Assessment Level: Moderate Risk
[2021-10-07] MEDS: INSULIN ASPART (NovoLOG) 100 UNIT/ML VIAL SQ SCH ×2 (17:13→20:19)
[2021-10-07] MEDS: SODIUM CHLORIDE 0.9% 1,000 ML IV SCH (17:13)
[2021-10-07] MEDS ORDERED: NITROGLYCERIN SL TABS 0.4 MG TAB SUBLINGUAL PRN (17:37)
[2021-10-07] MEDS ORDERED: ATROPINE SULFATE 0.1 MG/ML 10ML SYRINGE IV PRN (17:37)
[2021-10-07] MEDS ORDERED: MAG HYDROX/AL HYDROX/SIMETH 30 ML CUP PO PRN (17:37)
[2021-10-07] MEDS ORDERED: RX INFO: IV CONTRAST WAS GIVEN 1 EACH MISC MISCELLANE PRN (17:37)
--- NOTE | 2021-10-07 17:54 | P.PRCINT ---
Percutaneous Coronary Int. - Percutaneous Coronary Intervention Percutaneous Coronary Intervention: PROCEDURES PERFORMED: Bilateral coronary angiography, SVG to diagonal, LOWERY to LAD, radial to OM angiography, PCI mid to distal RCA with 2.75 x 28mm Xience SUZY, Penubmra aspiration thrombectomy RCA, Angioseal INDICATION: Inferior STEMI HISTORY: Patient is a pleasant 71 year old male with history of 3 vessel CABG who presented with chest pain off and on the last few days and worse over the last day. His urged him to come to ER and he was found to have inferior STEMI with ongoing chest pain. CONSENT:I have discussed the risks, benefits and alternative therapies for the above-mentioned procedure and for both sedation/analgesia as well as necessary blood product administration, if indicated, as they pertain to this patient. The patient has indicated understanding and acceptance of the risks and proce dures discussed. PROCEDURE: After the risks, benefits and alternatives of the above mentioned procedure explained in detail with the patient, informed consent was obtained. Patient was taken to the catheterization lab and prepped and draped in usual fashion. 1% lidocaine was used to anesthetize the right femoral area. A 6- Armenian sheath was placed in the right femoral artery using modified Seldinger technique. A 6Fr AL 0.75 guide was used to engage the RCA. The decision was made to perform PCI of the RCA. A 0.014 BMW wire was advanced into the distal RCA. There was a large thrombus burden. Balloon angioplasty was performed with a 2.5 x 12mm balloon. Penumbra aspiration was performed for 4 passes. Additional balloon angioplasty improved blood flow. Next a 2.75 x 28mm Xience SUZY was placed. Perintervention there was SERENE 0 flow and 100% stenosis. Post intervention there was SERENE 3 flow and 0% residual stenosis. Left coronary angiography was performed with a 6-Armenian JL 4.0 catheter. SVG to diagonal, left radial to OM and LOWERY were engage with a 6Fr FR4 catheter and angiography was performed. Right femoral angiography was performed which showed adequate anatomy for closure and therefore a 6Fr Angioseal was placed with hemostasis achieved. The patient tolerated the procedure well. Patient was transported back to the post catheterization holding area in stable condition. Conscious Sedation: Patient was monitored under the direct supervision of vision of myself for conscious sedation using Versed and fentanyl for a total duration of 50 minutes HEMODYNAMICS: Ao: 92/56 SELECTIVE CORONARY ARTERIOGRAPHY: LEFT MAIN: The left main is a large caliber vessel which bifurcates into the LAD and circumflex. There is 80% left main disease.. LEFT ANTERIOR DESCENDING CORONARY ARTERY: LAD has a 100% proximal occlusion. LEFT CIRCUMFLEX CORONARY ARTERY: Left circumflex is a moderate caliber vessel witha 100% proximal circumflex stenosis. RIGHT CORONARY ARTERY: The right coronary artery is a large caliber vessel which gives off a PDA and PLV branch and is the dominant vessel. There is a proximal RCA 40-50% stenosis and a mid to distal 100% stenosis with acute thrombus. LOWERY to LAD: widely patent and only filling the distal and apical LAD without any backfilling to the mid LAD. SVG to diagonal: widely patent and backfills a short segment of LAD/ septals. Radial to OM: Widely patent. FINAL IMPRESSION: 1. CAD as described above including 80% left main, 100% LAD, 100% circumflex, 100% RCA. 2. S/p successful PCI mid to distal RCA with 2.75 x 28mm Xience SUZY 3. Patent SVG to diagonal, radial to OM, LOWERY to LAD. PLAN: 1. Aggressive risk factor modification per most recent ACC/AHA guidelines. 2. Continue dual antiplatelets for 12 months with aspirin and Brillinta.
[2021-10-07] MEDS: ZOLPIDEM 5 MG TAB PO PRN (18:56)
--- NOTE | 2021-10-07 19:41 | US ---
EXAMINATION TYPE: US kidneys/renal and bladder DATE OF EXAM: 10/07/2021 COMPARISON: CT 2020 CLINICAL HISTORY: assess for CK D. Exam done portable EXAM MEASUREMENTS: Right Kidney: 13.0 x 5.5 x 7.7 cm Left Kidney: 11.1 x 5.8 x 5.0 cm Right Kidney: multiple cysts with largest measuring 5.9cm. Cortex appears within normal limits for th ickness. Left Kidney: multiple cysts with largest measuring 3.9cm. Cortex appears within normal limits for thi ckness. Bladder: not fully distended There is no evidence for hydronephrosis at this point in time. No nephrolithiasis is seen. No tova s are identified. The urinary bladder is anechoic. Bilateral ureteral jets are seen. IMPRESSION: 1. No evidence of obstructive uropathy. 2. Bilateral renal cysts.
[2021-10-07] MEDS: ATORVASTATIN 80 MG TAB PO SCH (20:16)
[2021-10-07] MEDS: TICAGRELOR 90 MG TAB PO SCH (20:16)
[2021-10-07 20:20] LABS: Glucose,Whole Blood 133 mg/dL (75-99)
[2021-10-08] MEDS: SODIUM CHLORIDE 0.9% 1,000 ML IV SCH (06:41)
[2021-10-08] MEDS: INSULIN ASPART (NovoLOG) 100 UNIT/ML VIAL SQ SCH ×4 (06:55→20:39)
[2021-10-08 06:56] LABS: Glucose,Whole Blood 128 mg/dL (75-99)
[2021-10-08] MEDS: PANTOPRAZOLE 40 MG TABLET PO SCH (06:57)
[2021-10-08 07:58] LABS: Basophils % (A) 0 %; Eosinophils % (A) 0 %; HGB 12.1 gm/dL (13.0-17.5); Lymphocytes # (A) 1.4 k/uL (1.0-4.8); Lymphocytes % (A) 15 %; MCH 31.5 pg (25.0-35.0); MCHC 32.7 g/dL (31.0-37.0); MCV 96.4 fL (80.0-100.0); Mean Platelet Volume 7.7; Monocytes # (A) 0.6 k/uL (0-1.0); Monocytes % (A) 7 %; Neutrophils # (A) 7.2 k/uL (1.3-7.7); Neutrophils % (A) 77 %; Platelet Count 188 k/uL (150-450); RBC 3.84 m/uL (4.30-5.90); RDW 13.8 % (11.5-15.5); WBC 9.4 k/uL (3.8-10.6)
[2021-10-08 08:17] LABS: Calcium 8.1 mg/dL (8.4-10.2); Potassium 4.1 mmol/L (3.5-5.1)
--- NOTE | 2021-10-08 08:35 | P.PN ---
Progress Note - Text This patient presented yesterday with a inferior ST elevation DE. He underwent cardiac cath and PTCA and stenting with aspiration thrombectomy office right coronary artery. He also had a prior bypass surgery but the bypasses were patent. RCA was not grafted. This morning he looks and feels well blood pressure is 118/70 pulse rate is about 82 per minute. His resting comfortably without chest pain or shortness of breath. HEENT is unremarkable and the cardiac catheterization site is clean and dry with good pulses. Heart exam is normal lungs are clear His echo is still pending at this time. I am recommending that we will increase the Lopressor add a small dose of losartan at bedtime. I will perform echocardiogram and increase activity and removed him to telemetry today discussed my thoughts in detail with the patient today will continue dual antiplatelet therapy. We will also resume atorvastatin 80 mg daily.
[2021-10-08] MEDS ORDERED: METOPROLOL SUCCINATE (ER) 25 MG TAB.ER.24H PO SCH (09:00)
[2021-10-08] MEDS: TICAGRELOR 90 MG TAB PO SCH ×2 (09:16→20:39)
[2021-10-08] MEDS: TAMSULOSIN 0.4 MG CAP.ER.24H PO SCH (09:16)
[2021-10-08] MEDS: EZETIMIBE 10 MG TAB PO SCH (09:16)
[2021-10-08] MEDS: ASPIRIN 81 MG PO SCH (09:16)
[2021-10-08] MEDS: METOPROLOL SUCCINATE (ER) 25 MG TAB.ER.24H PO SCH ×2 (09:17→20:39)
[2021-10-08 10:47] VITALS: BMI 22.4
[2021-10-08 11:47] LABS: Glucose,Whole Blood 113 mg/dL (75-99)
--- NOTE | 2021-10-08 14:25 | CA ---
Transthoracic Echo Report Name: Js Mckeon Age: 71 Gender: M : 1950 Exam Date: 10/08/2021 08:50 Exam Location: [facility] Ht (in): 70 Wt (lb): 156 Ordering Physician: Britt Donovan Attending/Referring Phys: [id number], [facility] [employer] Coordinator Sivan Abarca, YANDY Procedure CPT: Indications: STEMI, LV function Cardiac Hx: Diabetes. Hyperlipidemia. CABG 2012 Technical Quality: Fair Contrast 1: Total Dose (mL): Contrast 2: Total Dose (mL): MEASUREMENTS (Male / Female) Normal Values 2D ECHO LV Diastolic Diameter PLAX 5.0 cm 4.2 - 5.9 / 3.9 - 5.3 cm LV Systolic Diameter PLAX 3.9 cm IVS Diastolic Thickness 0.9 cm 0.6 - 1.0 / 0.6 - 0.9 cm LVPW Diastolic Thickness 1.0 cm 0.6 - 1.0 / 0.6 - 0.9 cm LV Relative Wall Thickness 0.4 RV Internal Dim ED PLAX 2.3 cm LA Systolic Diameter LX 3.7 cm 3.0 - 4.0 / 2.7 - 3.8 cm LA Volume 37.8 cm??? 18 - 58 / 22 - 52 cm??? M-MODE Aortic Root Diameter MM 3.3 cm MV E Point Septal Separation 1.4 cm AV Cusp Separation MM 2.3 cm DOPPLER AV Peak Velocity 87.0 cm/s AV Peak Gradient 3.0 mmHg MV Area PHT 3.1 cm??? Mitral E Point Velocity 61.5 cm/s Mitral A Point Velocity 54.0 cm/s Mitral E to A Ratio 1.1 MV Deceleration Time 247.1 ms MV E' Velocity 7.5 cm/s Mitral E to MV E' Ratio 8.2 FINDINGS Left Ventricle Left ventricular ejection fraction is estimated at 40 %. Left ventricular cavity size normal. Inferior wall hypokinesis also extends to the inferolateral wall Right Ventricle Normal right ventricular size. Unable to estimate the right ventricular systolic pressure. Right Atrium Normal right atrial size. Left Atrium Normal left atrial size. No evidence for an atrial septal defect. Mitral Valve Mitral valve thickened. Mitral annular calcification. Aortic Valve Focal thickening of the aortic valve cusps. No aortic valve stenosis or regurgitation. Tricuspid Valve Structurally normal tricuspid valve. Pulmonic Valve Mild pulmonic regurgitation. Pericardium Normal pericardium. Aorta Normal size aortic root and proximal ascending aorta. CONCLUSIONS LV size is normal there is moderate hypokinesia involving the inferior and inferolateral wall with estimated ejection fraction of 40%. No significant abnormality on the Doppler exam. No pericardial effusion Previewed by: Dr. Estelita Ott MD (Electronically Signed) Final Date: 08 Oct 2021 14:25
--- NOTE | 2021-10-08 15:05 | P.PN ---
Progress Note - Text Progress Note Date: 10/08/21 Chief Complaint: Indigestion This is a very pleasant 71-year-old patient who follows with Dr. Huizar. Chronic stable medical conditions include diabetes, GERD, hyperlipidemia, osteoarthritis, a single stricture with dilatation last one being in February [address] Sonu Sharma. Also has a AAA being followed by Dr. lowry. She has not a coronary bypass in 2012. For loss to 3 days patient been having more described as upper chest indigestion piece. And had been passing enough. He had been getting some symptoms with yardwork even laying at night. Finding it difficult to sleep at times. Symptoms progressed today. No radiation. Dizzy lightheaded some shortness of breath. 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 Patient had inferior ST elevation ID. Successful stent of the RCA was done. Postprocedure in the ICU. at the bedside. October 08: Moved out of the ICU. Ambulated. No chest pain no shortness of breath. No dizziness. Active Medications Acetaminophen (Acetaminophen Tab 325 Mg Tab) 650 mg PO Q6HR PRN PRN Reason: Mild Pain or Fever > 100.5 Al Hydroxide/Mg Hydroxide (Mag Hydrox/Al Hydrox/Simeth 30 Ml Cup) 30 ml PO Q4HR PRN PRN Reason: Heartburn Alprazolam (Alprazolam 0.25 Mg Tab) 0.25 mg PO Q6HR PRN PRN Reason: Anxiety Aspirin (Aspirin 81 Mg) 81 mg PO DAILY [facility] Last Admin: 10/08/21 09:16 Dose: 81 mg Documented by: Atorvastatin Calcium (Atorvastatin 80 Mg Tab) 80 mg PO HS [facility] Last Admin: 10/07/21 20:16 Dose: 80 mg Documented by: Atropine Sulfate (Atropine Sulfate 0.1 Mg/Ml 10ml Syringe) 0.5 mg IV ONCE PRN PRN Reason: Symptomatic Bradycardia Calcium Carbonate/Glycine (Calcium Carbonate 500 Mg Chewable) 1,000 mg PO Q4HR PRN PRN Reason: Dyspepsia Ezetimibe (Ezetimibe 10 Mg Tab) 10 mg PO DAILY [facility] Last Admin: 10/08/21 09:16 Dose: 10 mg Documented by: Sodium Chloride (Saline 0.9%) 1,000 mls @ 75 mls/hr IV .[id number] [facility] Last Admin: 10/08/21 06:41 Dose: 75 mls/hr Documented by: Insulin Aspart (Insulin Aspart (Novolog) 100 Unit/Ml Vial) 0 unit SQ ACHS [facility]; Protocol Last Admin: 10/08/21 12:50 Dose: Not Given Documented by: Lactulose (Lactulose 20 Gm/30 Ml Cup) 20 gm PO DAILY PRN PRN Reason: Constipation Losartan Potassium (Losartan 25 Mg Tab) 25 mg PO HS [facility] Metoprolol Succinate (Metoprolol Succinate (Er) 25 Mg Tab.Er.24h) 25 mg PO BID [facility] Last Admin: 10/08/21 09:17 Dose: 25 mg Documented by: Miscellaneous Information (Rx Info: Iv Contrast Was Given 1 Each Misc) 1 each MISCELLANE DAILY PRN PRN Reason: Per Protocol Stop: 10/09/21 17:37 Naloxone HCl (Naloxone 0.4 Mg/Ml 1 Ml Vial) 0.2 mg IV Q2M PRN PRN Reason: Opioid Reversal Nitroglycerin (Nitroglycerin Sl Tabs 0.4 Mg Tab) 0.4 mg SUBLINGUAL Q5M PRN PRN Reason: Chest Pain Ondansetron HCl (Ondansetron 4 Mg/2 Ml Vial) 4 mg IVP Q8HR PRN PRN Reason: Nausea And Vomiting Pantoprazole Sodium (Pantoprazole 40 Mg Tablet) 40 mg PO AC-BRKFST [facility] Last Admin: 10/08/21 06:57 Dose: 40 mg Documented by: Tamsulosin HCl (Tamsulosin 0.4 Mg Cap.Er.24h) 0.4 mg PO DAILY [facility] Last Admin: 10/08/21 09:16 Dose: 0.4 mg Documented by: Ticagrelor (Ticagrelor 90 Mg Tab) 90 mg PO BID [facility]; Protocol Last Admin: 10/08/21 09:16 Dose: 90 mg Documented by: Zolpidem Tartrate (Zolpidem 5 Mg Tab) 5 mg PO HS PRN PRN Reason: Insomnia Last Admin: 10/07/21 18:56 Dose: 5 mg Documented by: Past medical history to include: CAD with a bypass in 2012, diabetes, GERD, hyperlipidemia,'s medical's veins, small abdominal aneurysm being followed by Dr. lowry, esophageal stricture with dilatation, history of hematuria follows with Dr. sales Social history: . Nonsmoker. Alcohol rarely. 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 Family history: Reviewed, noncontributory to presentation Physical examination: VITAL SIGNS: 98.2, 80, 16, 96/72, 99% room air GENERAL: Laying in bed, comfortable EYES: Pupils equal. Conjunctiva normal. HEENT: External appearance of nose and ears normal, oral cavity grossly normal. NECK: JVD not raised; masses not palpable. HEART: First and second heart sounds are normal; no edema. LUNGS: Respiratory rate normal; clear to auscultation. ABDOMEN: Soft, nontender, liver spleen not palpable, no masses palpable. PSYCH: Alert and oriented x3; mood and affect normal. MUSCULOSKELETAL:No Clubbing/cyanosis;muscles-grossly intact. Some evidence of OA INVESTIGATIONS, reviewed in the clinical context: 2-D echocardiogram: EF 40%. Renal ultrasound: Unremarkable May: White count 9.4 hemoglobin 12.1 potassium 4.1 creatinine 0.99 White count 11.7 hemoglobin 12.7 platelets 238 potassium 4.9. 31 and creatinine 1.30 Troponin I 49.5, 168 Blood glucose 214 EKG tracing personally reviewed by me-ST elevation inferior leads. Chest x-ray film personally reviewed by me: Unremarkable Assessment and plan: -Acute ST elevation inferior wall ID. Emergent cardiac catheterization with stent of the RCA by Dr. Cavazos. 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 For Accu-Cheks. -GERD Omeprazole 20 mg twice a day -Hyperlipidemia Zetia 10 a day, Lipitor 80 mg daily at bedtime DC IV fluids. Continue current medications. Increase activity as tolerated.
[2021-10-08 16:41] LABS: Glucose,Whole Blood 128 mg/dL (75-99)
[2021-10-08 20:28] LABS: Glucose,Whole Blood 136 mg/dL (75-99)
[2021-10-08] MEDS: ATORVASTATIN 80 MG TAB PO SCH (20:39)
[2021-10-08] MEDS: ZOLPIDEM 5 MG TAB PO PRN (20:39)
[2021-10-08] MEDS ORDERED: LOSARTAN 25 MG TAB PO SCH (21:00)
[2021-10-09 05:54] LABS: Glucose,Whole Blood 126 mg/dL (75-99)
[2021-10-09] MEDS: INSULIN ASPART (NovoLOG) 100 UNIT/ML VIAL SQ SCH ×4 (06:09→20:57)
[2021-10-09] MEDS: PANTOPRAZOLE 40 MG TABLET PO SCH (07:30)
[2021-10-09] MEDS: TAMSULOSIN 0.4 MG CAP.ER.24H PO SCH (09:08)
[2021-10-09] MEDS: EZETIMIBE 10 MG TAB PO SCH (09:08)
[2021-10-09] MEDS: METOPROLOL SUCCINATE (ER) 25 MG TAB.ER.24H PO SCH (09:08)
[2021-10-09] MEDS: ASPIRIN 81 MG PO SCH (09:08)
[2021-10-09] MEDS: TICAGRELOR 90 MG TAB PO SCH ×2 (09:09→20:57)
[2021-10-09] MEDS ORDERED: FUROSEMIDE 10 MG/ML 2 ML VIAL IV ONE (09:44)
[2021-10-09] MEDS ORDERED: LOSARTAN 25 MG TAB PO SCH ×2 (09:45→21:00)
--- NOTE | 2021-10-09 10:40 | P.PN ---
Subjective HPI: This patient presented with acute inferior ST elevation NJ somewhat delayed almost 24-hour after the onset of chest pain but had persistent pain underwent stenting of RCA that was totally occluded. His troponin on arrival was 49. Echo revealed ejection fraction of 40% with significant inferolateral hypokinesia. Patient is slightly short of breath there are fine rales I'm recommending that we added Lasix 20 mg daily after one IV dose check a BMP in the morning increase activity increases the dose of beta sydni and see how he does. Explained the findings to the patient and suggested that he became somewhat limited to the emergency room and he suggested that he thought it was indigestion. Physical examination revealed a JVD of 1 cm no carotid bruit S1 and S2 heard normally short systolic murmur at the base no apical murmur lungs reveal fine bibasilar rales abdomen is soft right groin is clean and dry with a small area of ecchymosis lower extremities reveal palpable pulses no edema. Central nervous system is grossly within normal limits IMPRESSION: 1. [ Status post stenting of RCA in the setting of acute inferior ST elevation NJ]. 2. History of prior bypass surgery with patent grafts RCA was nongrafted presented with a borderline occlusion somewhat limited had stenting. 3. Mild systolic heart failure secondary to inferior NJ. 4. Benign hypertension. 5. Hypercholesterolemia. RECOMMENDATIONS: [Cautious diuresis increase beta sydni reevaluated tomorrow up in a CBC and BMP in the morning]. Objective - Vital Signs Vital signs: Vital Signs Temp 98.1 F 10/09/21 08:56 Pulse 80 10/09/21 08:56 Resp 16 10/09/21 08:56 BP 116/74 10/09/21 08:56 Pulse Ox 98 10/09/21 08:56 Intake & Output 10/08/21 10/09/21 10/09/21 18:59 06:59 18:59 Intake Total 835 20 340 Output Total 250 400 Balance 585 -380 340 Weight 71 kg Intake: IV 160 20 Invasive Line 1 10 Invasive Line 2 10 10 Sodium Chloride 0.9% 1, 150 000 ml @ 0 mls/hr IV .[facility] Rx#:[id number] Intake, IV Titration 675 Amount Sodium Chloride 0.9% 1, 675 000 ml @ 75 mls/hr IV . [id number] [facility] Rx#:[id number] Oral 340 Output: Urine 250 400 Other: Voiding Method Toilet Toilet Toilet Urinal Urinal Urinal # Voids 1 1 - Labs CBC & Chem 7: 10/08/21 07:29 10/08/21 07:29 Labs: Abnormal Lab Results - Last 24 Hours (Table) 10/08/21 10/08/21 10/08/21 Range/Units 07:29 11:45 16:38 POC Glucose (mg/dL) 113 H 128 H (75-99) mg/dL Hemoglobin A1c 7.6 H (0.0-6.0) % 10/08/21 10/09/21 Range/Units 20:22 05:52 POC Glucose (mg/dL) 136 H 126 H (75-99) mg/dL Hemoglobin A1c (0.0-6.0) %
[2021-10-09 11:36] LABS: Glucose,Whole Blood 136 mg/dL (75-99)
--- NOTE | 2021-10-09 13:24 | P.PN ---
Progress Note - Text Progress Note Date: 10/09/21 Chief Complaint: Indigestion This is a very pleasant 71-year-old patient who follows with Dr. Huizar. Chronic stable medical conditions include diabetes, GERD, hyperlipidemia, osteoarthritis, a single stricture with dilatation last one being in February [address] Sonu Sharma. Also has a AAA being followed by Dr. lowry. She has not a coronary bypass in 2012. For loss to 3 days patient been having more described as upper chest indigestion piece. And had been passing enough. He had been getting some symptoms with yardwork even laying at night. Finding it difficult to sleep at times. Symptoms progressed today. No radiation. Dizzy lightheaded some shortness of breath. 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 Patient had inferior ST elevation PR. Successful stent of the RCA was done. Postprocedure in the ICU. at the bedside. October 08: Moved out of the ICU. Ambulated. No chest pain no shortness of breath. No dizziness. October 09: Has been up to the bathroom. No chest pain. Given IV Lasix per cardiology. And placed on by mouth Lasix. Spoke to the patient and . To ambulate in the hallway as tolerated. Active Medications Acetaminophen (Acetaminophen Tab 325 Mg Tab) 650 mg PO Q6HR PRN PRN Reason: Mild Pain or Fever > 100.5 Al Hydroxide/Mg Hydroxide (Mag Hydrox/Al Hydrox/Simeth 30 Ml Cup) 30 ml PO Q4HR PRN PRN Reason: Heartburn Alprazolam (Alprazolam 0.25 Mg Tab) 0.25 mg PO Q6HR PRN PRN Reason: Anxiety Aspirin (Aspirin 81 Mg) 81 mg PO DAILY [facility] Last Admin: 10/09/21 09:08 Dose: 81 mg Documented by: Atorvastatin Calcium (Atorvastatin 80 Mg Tab) 80 mg PO HS [facility] Last Admin: 10/08/21 20:39 Dose: 80 mg Documented by: Atropine Sulfate (Atropine Sulfate 0.1 Mg/Ml 10ml Syringe) 0.5 mg IV ONCE PRN PRN Reason: Symptomatic Bradycardia Calcium Carbonate/Glycine (Calcium Carbonate 500 Mg Chewable) 1,000 mg PO Q4HR PRN PRN Reason: Dyspepsia Ezetimibe (Ezetimibe 10 Mg Tab) 10 mg PO DAILY [facility] Last Admin: 10/09/21 09:08 Dose: 10 mg Documented by: Furosemide (Furosemide 20 Mg Tab) 20 mg PO BID@0900,1600 [facility] Insulin Aspart (Insulin Aspart (Novolog) 100 Unit/Ml Vial) 0 unit SQ ACHS [facility]; Protocol Last Admin: 10/09/21 12:05 Dose: 1 unit Documented by: Lactulose (Lactulose 20 Gm/30 Ml Cup) 20 gm PO DAILY PRN PRN Reason: Constipation Losartan Potassium (Losartan 25 Mg Tab) 25 mg PO HS [facility] Metoprolol Tartrate (Metoprolol Tartrate 25 Mg Tab) 25 mg PO TID [facility] Miscellaneous Information (Rx Info: Iv Contrast Was Given 1 Each Misc) 1 each MISCELLANE DAILY PRN PRN Reason: Per Protocol Stop: 10/09/21 17:37 Naloxone HCl (Naloxone 0.4 Mg/Ml 1 Ml Vial) 0.2 mg IV Q2M PRN PRN Reason: Opioid Reversal Nitroglycerin (Nitroglycerin Sl Tabs 0.4 Mg Tab) 0.4 mg SUBLINGUAL Q5M PRN PRN Reason: Chest Pain Ondansetron HCl (Ondansetron 4 Mg/2 Ml Vial) 4 mg IVP Q8HR PRN PRN Reason: Nausea And Vomiting Pantoprazole Sodium (Pantoprazole 40 Mg Tablet) 40 mg PO AC-BRKFST [facility] Last Admin: 10/09/21 07:30 Dose: 40 mg Documented by: Tamsulosin HCl (Tamsulosin 0.4 Mg Cap.Er.24h) 0.4 mg PO DAILY [facility] Last Admin: 10/09/21 09:08 Dose: 0.4 mg Documented by: Ticagrelor (Ticagrelor 90 Mg Tab) 90 mg PO BID [facility]; Protocol Last Admin: 10/09/21 09:09 Dose: 90 mg Documented by: Zolpidem Tartrate (Zolpidem 5 Mg Tab) 5 mg PO HS PRN PRN Reason: Insomnia Last Admin: 10/08/21 20:39 Dose: 5 mg Documented by: Past medical history to include: CAD with a bypass in 2012, diabetes, GERD, hyperlipidemia,'s medical's veins, small abdominal aneurysm being followed by Dr. lowry, esophageal stricture with dilatation, history of hematuria follows with Dr. sales Social history: . Nonsmoker. Alcohol rarely. 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 Family history: Reviewed, noncontributory to presentation Physical examination: VITAL SIGNS: 97.9, 82, 16, 107/69, 99% room air GENERAL: Laying in bed, comfortable EYES: Pupils equal. Conjunctiva normal. HEENT: External appearance of nose and ears normal, oral cavity grossly normal. NECK: JVD not raised; masses not palpable. HEART: First and second heart sounds are normal; no edema. LUNGS: Respiratory rate normal; clear to auscultation. ABDOMEN: Soft, nontender, liver spleen not palpable, no masses palpable. PSYCH: Alert and oriented x3; mood and affect normal. MUSCULOSKELETAL:No Clubbing/cyanosis;muscles-grossly intact. Some evidence of OA INVESTIGATIONS, reviewed in the clinical context: 2-D echocardiogram: EF 40%. Renal ultrasound: Unremarkable May: White count 9.4 hemoglobin 12.1 potassium 4.1 creatinine 0.99 White count 11.7 hemoglobin 12.7 platelets 238 potassium 4.9. 31 and creatinine 1.30 Troponin I 49.5, 168 Blood glucose 214 EKG tracing personally reviewed by me-ST elevation inferior leads. Chest x-ray film personally reviewed by me: Unremarkable Assessment and plan: -Acute ST elevation inferior wall PR. Emergent cardiac catheterization with stent of the RCA by Dr. Cavazos. -CAD with a prior history of bypass in 2012 Aspirin, Lipitor, Zetia, Toprol-XL -Ischemic cardiomyopathy, EF 40% Toprol-XL, Cozaar. 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 For Accu-Cheks. -GERD Omeprazole 20 mg twice a day -Hyperlipidemia Zetia 10 a day, Lipitor 80 mg daily at bedtime Continue current medications. Patient started on Lasix. Increase activity. Discussed with the patient and at the bedside.
[2021-10-09 16:20] LABS: Glucose,Whole Blood 172 mg/dL (75-99)
[2021-10-09] MEDS: METOPROLOL TARTRATE 25 MG TAB PO SCH ×2 (16:22→20:58)
[2021-10-09] MEDS: ATORVASTATIN 80 MG TAB PO SCH (20:57)
[2021-10-09 21:05] LABS: Glucose,Whole Blood 135 mg/dL (75-99)
[2021-10-10] MEDS: PANTOPRAZOLE 40 MG TABLET PO SCH (06:42)
[2021-10-10] MEDS: INSULIN ASPART (NovoLOG) 100 UNIT/ML VIAL SQ SCH (06:42)
[2021-10-10 06:45] LABS: Glucose,Whole Blood 139 mg/dL (75-99)
[2021-10-10 07:22] LABS: Calcium 7.9 mg/dL (8.4-10.2); Potassium 3.8 mmol/L (3.5-5.1)
[2021-10-10] MEDS ORDERED: FUROSEMIDE 20 MG TAB PO SCH (09:00)
[2021-10-10 09:13] VITALS: RESP 18; TEMP 98.1
[2021-10-10] MEDS: ASPIRIN 81 MG PO SCH (09:14)
[2021-10-10] MEDS: TICAGRELOR 90 MG TAB PO SCH (09:14)
[2021-10-10] MEDS: EZETIMIBE 10 MG TAB PO SCH (09:14)
[2021-10-10] MEDS: METOPROLOL TARTRATE 25 MG TAB PO SCH (09:14)
[2021-10-10] MEDS: TAMSULOSIN 0.4 MG CAP.ER.24H PO SCH (09:14)
[2021-10-10 11:48] LABS: Glucose,Whole Blood 122 mg/dL (75-99)
[2021-10-10 11:50] VITALS: BP 109/70; PULSE 69
--- NOTE | 2021-10-10 12:40 | P.PN ---
Subjective Progress Note Date: 10/10/21 HISTORY OF PRESENT ILLNESS: This is a 71-year-old male with a past medical history significant for coronary artery disease with previous CABG, hyperlipidemia, diabetes, and AAA (follows with Dr. Jarquin). Patient follows in the office with Dr. Grant. We have been asked to see the patient in consultation for STEMI. The patient presented to the emergency room with a chief complaint of chest pain. An EKG was obtained revealing ST elevation in inferior leads and a STEMI was called. Patient was examined in the emergency room. He states he has been having chest pain intermittently for the past 2-3 days. He states the pain felt sort of like indigestion. He denied any radiation of the pain. He reports minimal shortness of breath. He currently states the pain is about a 2/10. He has received aspirin at the time of my examination. * EKG reveals ST elevation in inferior leads * Chest xray chronic changes without acute pulmonary process * Laboratory data: WBC 11.7. Hemoglobin 12.7. Platelet count 238. Sodium 139. Potassium 4.9. BUN 31. Creatinine 1.30. * Current home cardiac medications include Lipitor 80 mg at night and Zetia 10 mg daily * Most recent echocardiogram obtained in July 2020 revealed normal EF, mild MR, mild TR * Patient underwent Lexiscan stress test in July 2020 revealing normal ejection fraction and no evidence for ischemia * Patient underwent CABG in October 2012 with Johnny LOUIS1, VGD1 10/10/2021 Patient is status post cardiac catheterization with stenting of the RCA that was totally occluded. Echocardiogram completed revealing ejection fraction of 40%. Patient examined this morning at the bedside. Patient denies chest pain or pressure. He denies shortness of breath. Patient's vital signs are stable. Patient is hoping to be discharged home today. PHYSICAL EXAM: VITAL SIGNS: Reviewed. GENERAL: Well-developed in no acute distress. HEENT: Head is normocephalic. Pupils are equal, round. Sclerae anicteric. Mucous membranes of the mouth are moist. Neck supple. No JVD or thyromegaly LUNGS: Respirations even and unlabored. Lungs essentially clear to auscultation bilaterally. HEART: Regular rate and rhythm. S1 and S2 heard. ABDOMEN: Soft. Nondistended. Nontender. EXTREMITIES: Normal range of motion. No clubbing or cyanosis. Peripheral pulses intact. No lower extremity edema NEUROLOGIC: Awake and alert. Oriented x 3. ASSESSMENT: Inferior STEMI Mild congestive heart failure with reduced EF Coronary artery disease with previous three-vessel CABG in 2013 Hyperlipidemia Diabetes History of AAA PLAN: Continue current cardiac medications Patient may be discharged home today from a cardiac standpoint and follow up outpatient with Dr. Grant Nurse practitioner note has been reviewed by physician. Signing provider agrees with the documented findings, assessment, and plan of care. Objective - Vital Signs Vital signs: Vital Signs Temp 98.1 F 10/10/21 09:09 Pulse 69 10/10/21 11:48 Resp 18 10/10/21 11:48 BP 109/70 10/10/21 11:48 Pulse Ox 99 10/10/21 11:48 FiO2 Intake & Output 10/09/21 10/10/21 10/10/21 18:59 06:59 18:59 Intake Total 340 Balance 340 Intake: Oral 340 Other: Voiding Method Toilet Toilet Toilet Urinal Urinal Urinal # Voids 3 2 - Labs CBC & Chem 7: 10/08/21 07:29 10/10/21 05:48 Labs: Abnormal Lab Results - Last 24 Hours (Table) 10/09/21 10/09/21 10/10/21 Range/Units 16:19 20:56 05:48 Chloride 108 H (98-107) mmol/L BUN 24 H (9-20) mg/dL Glucose 135 H (74-99) mg/dL POC Glucose (mg/dL) 172 H 135 H (75-99) mg/dL Calcium 7.9 L (8.4-10.2) mg/dL 10/10/21 10/10/21 Range/Units 06:42 11:47 Chloride (98-107) mmol/L BUN (9-20) mg/dL Glucose (74-99) mg/dL POC Glucose (mg/dL) 139 H 122 H (75-99) mg/dL Calcium (8.4-10.2) mg/dL
--- NOTE | 2021-10-11 10:03 | P.DS ---
Providers Date of admission: 10/07/21 14:06 Expected date of discharge: 10/10/21 Attending physician: Moy Warner Consults: 10/07/21 13:42 Consult Physician Stat Consulting Provider: Sarahi Johnson Consult Reason/Comments: STEMI ACTIVATION COMPLETE Do you want consulting provider notified?: Yes 10/07/21 17:37 Consult Physician Routine Consulting Provider: Cardiology Elizabeth Consult Reason/Comments: Post Interventional patient Do you want consulting provider notified?: Already Contacted Primary care physician: Bismark Huizar [place] [facility] Course: Final diagnosis Acute STEMI with successful stenting to the RCA with 100% blockage Coronary artery disease with prior history of bypass in 2012 Ischemic cardiomyopathy with an EF of 40% Benign prostatic hypertrophy Diabetes mellitus type 2 Gastroesophageal reflux disease Hyperlipidemia GI prophylaxis DVT prophylaxis Full code Discharge disposition Patient is being discharged in a stable condition with guarded prognosis to home. Patient will follow-up with Dr. Bismark Huizar upon discharge. Patient will follow-up with cardiology Dr. Grant in one week as scheduled. Total time taken is greater than 35 minutes. Hospital course This is a 71-year-old male who was recently admitted with last 3 days onset upper chest indigestion with some other associated symptoms of becoming more fatigued with yard work and difficulty in sleeping. 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 Patient had successful stenting of the RCA and was reported 100% blockage. Patient initially brought to the ICU for close observation and transferred to the selective unit with cardiology following closely. Patient has been cleared by cardiology and will follow-up with Dr. Grant in the outpatient setting in 1 week as scheduled. Patient to continue with current medication regimen as mentioned below and is being discharged today. Guarded prognosis. Physical exam: Gen: This is a 71-year-old male awake, alert and oriented 3, well-developed, well-nourished HEENT: Head is atraumatic, normocephalic. Pupils equal, round. Sclerae is anicteric. NECK: Supple. No JVD. No lymphadenopathy. No thyromegaly. LUNGS: Clear to auscultation. No wheezes or rhonchi. No intercostal retractions. HEART: Regular rate and rhythm. No murmur. ABDOMEN: Soft. Bowel sounds are present. No masses. No tenderness. EXTREMITIES: No pedal edema. No calf tenderness. NEUROLOGICAL: Patient is awake, alert and oriented x3. Cranial nerves 2 through 12 are grossly intact. Please refer to medication reconciliation sheet for a list of medications. The impression and plan of care has been dictated by Gillian Flannery, Nurse Practitioner as directed. Dr. Thalia MD I have performed a history and examination and MDM of this patient, discussed the same with the dictator, and agree with the dictator's assessment and plan as written ,documented as a scribe. Based on total visit time, I have performed more than 50% of the visit. Patient Condition at Discharge: Stable Plan - Discharge Summary Discharge Rx Participant: No New Discharge Prescriptions: New Aspirin 81 mg PO DAILY #30 tab Ticagrelor [Brilinta] 90 mg PO BID 30 Days #60 tab Losartan [Cozaar] 25 mg PO HS #30 tab Acetaminophen Tab [Tylenol] 650 mg PO Q6HR PRN tab PRN Reason: Mild Pain Or Fever > 100.5 Furosemide [Lasix] 20 mg PO DAILY 30 Days #30 tab Metoprolol Tartrate [Lopressor] 25 mg PO TID #60 tab Continue metFORMIN HCL [Glucophage] 500 mg PO TID Ezetimibe [Zetia] 10 mg PO DAILY Atorvastatin [Lipitor] 80 mg PO HS Tamsulosin [Flomax] 0.4 mg PO DAILY Sildenafil Citrate 50 mg PO DAILY PRN PRN Reason: ED Omeprazole 20 mg PO BID Discharge Medication List Atorvastatin [Lipitor] 80 mg PO HS 03/08/18 [History] Ezetimibe [Zetia] 10 mg PO DAILY 03/08/18 [History] metFORMIN HCL [Glucophage] 500 mg PO TID 03/08/18 [History] Omeprazole 20 mg PO BID 10/07/21 [History] Sildenafil Citrate 50 mg PO DAILY PRN 10/07/21 [History] Tamsulosin [Flomax] 0.4 mg PO DAILY 10/07/21 [History] Acetaminophen Tab [Tylenol] 650 mg PO Q6HR PRN tab 10/10/21 [Rx] Aspirin 81 mg PO DAILY #30 tab 10/10/21 [Rx] Furosemide [Lasix] 20 mg PO DAILY 30 Days #30 tab 10/10/21 [Rx] Losartan [Cozaar] 25 mg PO HS #30 tab 10/10/21 [Rx] Metoprolol Tartrate [Lopressor] 25 mg PO TID #60 tab 10/10/21 [Rx] Ticagrelor [Brilinta] 90 mg PO BID 30 Days #60 tab 10/10/21 [Rx] Follow up Appointment(s)/Referral(s): Suly Grant MD [STAFF PHYSICIAN] - 10/19/21 1:45 pm Bismark Huizar MD [Primary Care Provider] - 10/13/21 8:30 am Ambulatory/Diagnostic Orders: Basic Metabolic Panel [LAB.AMB] Time Frame: 3 Days, Location: None Selected Patient Instructions/Handouts: Heart Attack (DC), Safe Use of Antiplatelet Medication (DC), Heart Catheterization (DC), Angio-Seal (DC) Activity/Diet/Wound Care/Special Instructions: CARDIAC CATH Support your puncture site by applying firm, steady pressure whenever you cough, laugh, sneeze or bear down to have a bowel movement (2-day restriction). Watch for any excessive bruising, active bleeding, a firm knot forming under your skin, extreme tenderness and signs of infection (redness, swelling, fever). Shower daily, do not soak puncture in a tub bath, jacuzzi, pool, mejia etc. for 1 week. This is to prevent risk of infection. Drink plenty of fluids the day of and day after your procedure to flush contrast dye out of your kidneys. Take all medications as directed. Never stop any new medication without your physicians OK. No driving for 2 days after procedure. 10- pound weight lifting restriction for 1 week. Low sodium/low fat diet. Activity limited until follow up appointment with your criminal justice professor. In case of any problems, please call [facility] [place] @ [phone] Recommend repeat labs in 2-3 days with primary care provider to monitor electrolytes and kidney functions closely Continue heart healthy diet, low-fat, low-sodium diet Follow-up with cardiology as discussed and scheduled Discharge Disposition: HOME SELF-CARE
--- NOTE | 2021-10-21 17:03 | CDI ---
Documentation Clarification Form Date: 10/21/2021 04:51:10 PM From: Genie Watts Phone: Admit Date: 10/07/2021 02:06:00 PM Patient Name: Js Mckeon Visit Number: [id number] Discharge Date: 10/10/2021 01:25:00 PM ATTENTION: The Clinical Documentation Specialists (CDI) and [facility] Coding Staff appreciate your assistance in clarifying documentation. Please respond to the clarification below the line at the bottom and electronically sign. The CDI & [facility] Coding staff will review the response and follow-up if needed. Please note: Queries are made part of the Legal Health Record. If you have any questions, please contact the author of this message via ITS. Dr. Vicki Vásquez Your patient has the documented diagnosis of unspecified CHF [insert date, location]. Additional information regarding the [type, acuity] of CHF is requested. History/Risk Factors: Clinical Indicators: VS/Pulse OX: BNP: Echocardiogram Results: Chest X Ray: Treatment: In your professional opinion, can you please clarify the [acuity and type] of CHF if known? [ ] Acute Systolic Heart Failure (reduced EF) [ ] Chronic Systolic Heart Failure (reduced EF) [ ] Acute on Chronic Systolic Heart Failure (reduced EF) [ ] Acute Diastolic Heart Failure (preserved EF) [ ] Chronic Diastolic Heart Failure (preserved EF) [ ] Acute on Chronic Diastolic Heart Failure (preserved EF) [ ] Acute Systolic & Diastolic Heart Failure [ ] Chronic Systolic & Diastolic Heart Failure MTDD
--- NOTE | 2021-10-25 18:16 | CDI ---
Your patient has the documented diagnosis of unspecified CHF Progress Note 10/10. Additional information regarding the acuity of CHF is requested. History/Risk Factors: mild congestive heart failure w/ reduced EF Echocardiogram Results: EF of 40% Treatment: 20mg IV Lasix, 20mg PO Lasix In your professional opinion, can you please clarify the [acuity and type] of CHF if known? [ ] Acute Systolic Heart Failure (reduced EF) [ ] Chronic Systolic Heart Failure (reduced EF) [ ] Acute on Chronic Systolic Heart Failure (reduced EF) [ ] Other, please specify [ ] Unable to determine Acute congestive heart failure from systolic dysfunction EF 40%. MTDD
--- NOTE | 2021-10-26 16:43 | CDI ---
Documentation Clarification Form Date: 10/25/2021 06:06:00 PM From: Sonya Robbins Phone: Admit Date: 10/07/2021 02:06:00 PM Patient Name: Js Mckeon Visit Number: [id number] Discharge Date: 10/10/2021 01:25:00 PM ATTENTION: The Clinical Documentation Specialists (CDI) and [facility] Coding Staff appreciate your assistance in clarifying documentation. Please respond to the clarification below the line at the bottom and electronically sign. The CDI & [facility] Coding staff will review the response and follow-up if needed. Please note: Queries are made part of the Legal Health Record. If you have any questions, please contact the author of this message via ITS. Dr. Vicki Vásquez Your patient has the documented diagnosis of unspecified CHF Progress Note 10/10. Additional information regarding the acuity of CHF is requested. History/Risk Factors: mild congestive heart failure w/ reduced EF Echocardiogram Results: EF of 40% Treatment: 20mg IV Lasix, 20mg PO Lasix In your professional opinion, can you please clarify the acuity of CHF if known? [ x] Acute Systolic Heart Failure (reduced EF) [ ] Chronic Systolic Heart Failure (reduced EF) [ ] Acute on Chronic Systolic Heart Failure (reduced EF) [ ] Other, please specify [ ] Unable to determine MTDD
== END 2021-10-10 13:25 | disposition home or self-care (01) | DRG 246 ==
LOC: EC 13:14 → 2SICU 14:06 → 3SCARD 10-08 13:03
PROVIDERS: ADMIT Hospitalist; ATTEND Hospitalist
PROC: 027034Z Dilation of Coronary Artery, One Artery with Drug-eluting Intraluminal Device, Percutaneous Approach (ICD-10-PCS; principal; 2021-10-07 09:00)
PROC: 02C03ZZ Extirpation of Matter from Coronary Artery, One Artery, Percutaneous Approach (ICD-10-PCS; principal; 2021-10-07 09:00)
PROC: B211YZZ Fluoroscopy of Multiple Coronary Arteries using Other Contrast (ICD-10-PCS; principal; 2021-10-07 09:00)
DX: I21.19 ST elevation (STEMI) myocardial infarction involving other coronary artery of inferior wall (principal); I50.23 Acute on chronic systolic (congestive) heart failure; T82.868A Thrombosis due to vascular prosthetic devices, implants and grafts, initial encounter; T82.858A Stenosis of other vascular prosthetic devices, implants and grafts, initial encounter; I25.10 Atherosclerotic heart disease of native coronary artery without angina pectoris; Z95.1 Presence of aortocoronary bypass graft; E78.5 Hyperlipidemia, unspecified; Z79.82 Long term (current) use of aspirin; Z79.84 Long term (current) use of oral hypoglycemic drugs; Z79.4 Long term (current) use of insulin; Z79.899 Other long term (current) drug therapy; E11.9 Type 2 diabetes mellitus without complications; I11.0 Hypertensive heart disease with heart failure; E78.00 Pure hypercholesterolemia, unspecified; F41.9 Anxiety disorder, unspecified; G47.00 Insomnia, unspecified; I25.5 Ischemic cardiomyopathy; K21.9 Gastro-esophageal reflux disease without esophagitis; N28.1 Cyst of kidney, acquired; I71.4 Abdominal aortic aneurysm, without rupture; N40.0 Benign prostatic hyperplasia without lower urinary tract symptoms
CPT/HCPCS: 36415; 71045; 76770; 80048; 80053; 83036; 84484; 85025; 85610; 85730; 93005; 93306; 93455; 96374; 99285

== ENCOUNTER → 2021-12-09 | Outpatient (CLI) | payer MEDICARE ==
[2021-12-09 15:06] LABS: ALT 12 U/L (10-49); AST 16 U/L (14-35); Albumin 4.1 g/dL (3.8-4.9); Albumin/Globulin Ratio 1.89 (1.60-3.17); Alkaline Phosphatase 72 U/L (41-126); BUN/Creat Ratio 22.33 Ratio (12.00-20.00); Blood Urea Nitrogen 25.9 mg/dL (9.0-27.0); Calcium 9.3 mg/dL (8.7-10.3); Carbon Dioxide 25.2 mmol/L (20.0-27.5); Chloride 106 mmol/L (96-109); Chol/HDL Ratio 3.48 Ratio; Globulin 2.2 g/dL (1.6-3.3); Glucose 144 mg/dL (70-110); LDL Cholesterol,Calculated 85.2 mg/dL (0.0-131.0); Potassium 4.4 mmol/L (3.5-5.5); Sodium 141 mmol/L (135-145); Total Protein 6.3 g/dL (6.2-8.2)
== END | disposition home or self-care (01) ==
LOC: LABWHC1 10:01
PROVIDERS: ATTEND Internal Medicine Interventional Cardiology
DX: E78.2 Mixed hyperlipidemia (principal)
CPT/HCPCS: 36415; 80053; 80061

== ENCOUNTER → 2023-03-02 | Outpatient (CLI) | payer MEDICARE ==
[2023-03-02 10:32] LABS: African American GFR (CKD) 83 (>60 ml/min/1.73 sqM); Blood Urea Nitrogen 23 mg/dL (9-20); Non-African American GFR(CKD) 72 (>60 ml/min/1.73 sqM)
--- NOTE | 2023-03-02 13:51 | CT ---
EXAMINATION TYPE: CT abdomen wo/w con DATE OF EXAM: 03/02/2023 COMPARISON: 02/07/2021 HISTORY: Hx renal mass, observing for cancer. CT DLP: 675.30 mGycm Automated exposure control for dose reduction was used. TECHNIQUE: Helical acquisition of images was performed from the lung bases through the top of iliac crest to include entire abdomen. CONTRAST: Performed with Oral Contrast and with IV Contrast, patient injected with 100 mL of Isovue 300. FINDINGS: The lung bases are clear. There is a small hiatal hernia The gallbladder is contracted but there is no evidence of cholelithiasis, wall thickening, pericholec ystic fluid or biliary ductal dilatation. There is no focal mass or organomegaly involving the liver, pancreas, spleen or adrenal glands. The p ancreas appears mildly atrophic. There are multiple renal cysts all of which are stable compared to the prior study the largest of i ch is approximately 6.2 cm. There is no hydronephrosis. There is a nonobstructing 5 mm left renal kiara cification. There is a infrarenal abdominal aortic aneurysm with mild interval growth in size. Previously was liliana roximately 3.9 cm and is now approximate 4.3 cm. There is no retroperitoneal adenopathy or hemorrhage . The bowel loops are normal in caliber is no dilatation or obstruction. No inflammatory changes are id entified in the bowel wall or mesentery. There is no free intraperitoneal air or fluid. The osseous structures and soft tissues unremarkable. IMPRESSION: 1. Multiple renal cysts with no suspicious renal masses. 2. 5 mm nonobstructing left renal calcification. No hydronephrosis bilaterally. 3. Infrarenal abdominal aortic aneurysm which is slightly larger in the interval as described above. 4. Small hiatal hernia
== END | disposition home or self-care (01) ==
LOC: RADCTMAIN 09:48
PROVIDERS: ATTEND Urology
DX: D41.02 Neoplasm of uncertain behavior of left kidney (principal); N28.1 Cyst of kidney, acquired; I71.43 Infrarenal abdominal aortic aneurysm, without rupture; K44.9 Diaphragmatic hernia without obstruction or gangrene; N28.89 Other specified disorders of kidney and ureter
CPT/HCPCS: 82565; 84520; 74170; 36415; Q9967

== ENCOUNTER 2023-12-12 08:29 | Day surgery (SDC) | payer MEDICARE ==
[2023-12-07 10:22] VITALS: BMI 22.1
[2023-12-12 08:50] VITALS: TEMP 97
[2023-12-12] MEDS: IV FLUID CONTINUATION 1,000 ML IV ONE (08:51)
[2023-12-12 08:59] LABS: Glucose,Whole Blood 138 mg/dL (70-110)
[2023-12-12] MEDS: LACTATED RINGERS 1,000 ML IV SCH (08:59)
[2023-12-12] MEDS ORDERED: PROPOFOL 10 MG/ML 20 ML VIAL IV ONE (09:55)
--- NOTE | 2023-12-12 10:09 | P.PCN ---
Date of Procedure: 12/12/23 Procedure(s) Performed: BRIEF HISTORY: Patient is a 73-year-old pleasant white male scheduled for an elective colonoscopy as a part of screening for colon cancer. PROCEDURE PERFORMED: Colonoscopy. PREOPERATIVE DIAGNOSIS: Screening for colon cancer. IV sedation per Anesthesia. PROCEDURE: After informed consent was obtained, the patient, was brought into the endoscopy unit. IV sedation was administered by Anesthesia under continuous monitoring. Digital rectal examination was normal. Initially the Olympus CF-160 flexible video colonoscope was then inserted in the rectum, gradually advanced into the cecum without any difficulty. Careful examination was performed as the scope was gradually being withdrawn. Ileocecal valve and the appendiceal orifice were visualized and appeared normal. Prep was excellent. Mucosa of the cecum, ascending colon, transverse colon, descending colon, sigmoid colon, and rectum appeared normal. Scattered sigmoid diverticulosis. Retroflexion was performed in the rectum and no lesions were seen. The patient tolerated the procedure well. IMPRESSION: ' Normal-appearing colon from rectum to cecum with no evidence of colorectal neoplasia Scattered sigmoid diverticulosis. RECOMMENDATIONS: Findings of this examination were discussed with the patient as well as his family.. He was advised to have repeat screening colonoscopy in 10 years
[2023-12-12 10:31] VITALS: BP 107/68; PULSE 65; RESP 18
== END 2023-12-12 10:47 | disposition home or self-care (01) ==
LOC: ORWHC2ENDO 08:29
PROVIDERS: ATTEND Internal Medicine Gastroenterology
DX: Z12.11 Encounter for screening for malignant neoplasm of colon (principal); K57.30 Diverticulosis of large intestine without perforation or abscess without bleeding; I25.2 Old myocardial infarction; I10 Essential (primary) hypertension; E78.5 Hyperlipidemia, unspecified; E11.9 Type 2 diabetes mellitus without complications; K21.9 Gastro-esophageal reflux disease without esophagitis; I71.40 Abdominal aortic aneurysm, without rupture, unspecified; Z95.5 Presence of coronary angioplasty implant and graft; Z79.84 Long term (current) use of oral hypoglycemic drugs; Z79.899 Other long term (current) drug therapy
CPT/HCPCS: J2704; G0121; 45378

== ENCOUNTER → 2024-06-16 | Outpatient (CLI) | payer MEDICARE ==
[2024-06-16 15:31] LABS: ALT 18 U/L (10-49); AST 20 U/L (14-35); Alkaline Phosphatase 73 U/L (41-126); BUN/Creat Ratio 18.27 Ratio (12.00-20.00); Blood Urea Nitrogen 20.1 mg/dL (9.0-27.0); Calcium 9.3 mg/dL (8.7-10.3); Carbon Dioxide 28.2 mmol/L (21.6-31.8); Chloride 112 mmol/L (96-109); Chol/HDL Ratio 3.48 Ratio; Glucose 158 mg/dL (70-110); LDL Cholesterol,Calculated 73.8 mg/dL (0.0-131.0); Potassium 4.8 mmol/L (3.5-5.5); Sodium 152 mmol/L (135-145); Total Bilirubin 0.4 mg/dL (0.3-1.2); VLDL Calculation 16.72 mg/dL (5.00-40.00)
== END | disposition home or self-care (01) ==
LOC: LABWHC1 08:25
PROVIDERS: ATTEND Internal Medicine Interventional Cardiology
DX: E78.2 Mixed hyperlipidemia (principal)
CPT/HCPCS: 36415; 80053; 80061

== ENCOUNTER → 2024-12-15 | Outpatient (CLI) | payer MEDICARE ==
[2024-12-15 10:19] LABS: ALT 28 U/L (10-49); AST 25 U/L (14-35); Cholesterol 149.00 mg/dL (0.00-200.00); HDL Cholesterol 40.70 mg/dL (40.00-60.00); LDL Cholesterol,Calculated 85.7 mg/dL (0.0-131.0); Triglycerides 113.00 mg/dL (0.00-149.00); VLDL Calculation 22.60 mg/dL (5.00-40.00)
== END | disposition home or self-care (01) ==
LOC: LABWHC1 07:17
PROVIDERS: ATTEND Nurse Practitioner Adult Health
DX: E78.2 Mixed hyperlipidemia (principal)
CPT/HCPCS: 36415; 80061; 84450; 84460